=== PATIENT | female | born 1975 | race African-American/Black ===

== ENCOUNTER 2017-08-27 17:15 | Emergency (ER) | payer OTHER ==
[2017-08-27 19:15] LABS: Absolute Monocytes 0.8 K/uL (0.1-1.3); MCH 23.6 pg (27.0-35.0); Monocytes % 9.5 % (3.3-12.3)
[2017-08-27 19:18] LABS: Potassium 3.4 mEq/L (3.6-5.0)
--- NOTE | 2017-08-27 19:21 | RAD REPORT ---
EXAM DESCRIPTION: RAD - Chest Pa And Lat (2 Views) - 08/27/2017 6:59 pm CLINICAL HISTORY: Persistent cough and congestion, chest pain COMPARISON: October 2016 TECHNIQUE: PA and lateral views of the chest were obtained. FINDINGS: The lungs are clear. Heart size is normal and central vasculature is within normal limit s. No pleural effusion or pneumothorax seen. No acute bony finding noted. No aortic abnormality. IMPRESSION: No acute cardiopulmonary process. No significant interval change.
[2017-08-27 19:23] LABS: Absolute Lymphocytes (CBC) 2.7 K/uL (0.7-4.9); Absolute Neutrophil 4.4 K/uL (1.8-8.0); Basophils % 0.7 % (0-1.3); Eosinophils % 1.5 % (0-4.4); Hematocrit 37.3 % (36.0-45.0); Lymphocytes % 33.3 % (15.3-44.8); MCV 76.5 fL (80-100); MPV 9.7 fL (7.6-11.3); RBC Red Blood Cell Count 4.87 M/uL (3.86-4.86)
--- NOTE | 2017-08-27 19:48 | ER ---
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 Transition of care: patient was not received from another setting of care. Onset of symptoms was August 27, 2017. Care prior to arrival: None. 17:54 Method Of Arrival: Ambulatory hb 17:54 Acuity: FERMIN 3 hb 20:00 Initial Sepsis Screen: Does the patient meet any 2 criteria? No. Patient's initial mg2 sepsis screen is negative. 20:35 Initial Sepsis Screen: Does the patient have a suspected source of infection? No. mg2 Patient's initial sepsis screen is negative. Triage Assessment: 20:00 Respiratory: Reports cough that is non-productive, dry, the patient has moderate mg2 shortness of breath. 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 - Social history:: Smoking status: Patient/guardian denies using tobacco. - Family history:: not pertinent. - Hospitalizations: : No recent hospitalization is reported. Screenin:34 Abuse screen: Denies threats or abuse. Denies injuries from another. Nutritional mg2 screening: No deficits noted. Tuberculosis screening: No symptoms or risk factors identified. Fall Risk IV access (20 points). Assessment: 19:32 General: Appears in no apparent distress. comfortable, Behavior is calm, cooperative. mg2 Pain: Complains of pain in chest Pain does not radiate. Pain currently is 5 out of 10 on a pain scale. Quality of pain is described as aching, Pain began 2-3 days ago. Is intermittent, Aggravated by cough. Neuro: Level of Consciousness is awake, alert, Oriented to person, place, time. Cardiovascular: Capillary refill < 3 seconds Patient's skin is warm and dry. Rhythm is regular. Respiratory: Reports cough that is non-productive, Airway is patent Respiratory effort is even, unlabored. GI: No signs and/or symptoms were reported involving the gastrointestinal system. : No signs and/or symptoms were reported regarding the genitourinary system. EENT: No signs and/or symptoms were reported regarding the EENT system. Derm: Skin is intact, Skin is pink, warm \\T\\ dry. normal. Musculoskeletal: No signs and/or symptoms reported regarding the musculoskeletal system. 20:27 Respiratory: with chest congestion . nd been coughing for 2 days. mg2 Vital Signs: 17:56 BP 158 / 95; Pulse 108; Resp 20; Temp 98.9; Pulse Ox 100% on R/A; Weight 81.65 kg; hb Height 5 ft. 4 in. (162.56 cm); Pain 7/10; 19:35 BP 138 / 89; Pulse 89; Resp 18; Pulse Ox 97% on R/A; Pain 5/10; mg2 17:56 Body Mass Index 30.90 (81.65 kg, 162.56 cm) hb ED Course: 17:17 Patient arrived in ED. al2 17:56 Triage completed. hb 17:58 Arm band placed on right wrist. hb 17:58 Patient EKG paged to triage. hb 18:32 Timmy Us MD is Attending Physician. rn 18:56 Initial lab(s) drawn, by nc, sent to lab. EKG done, by ED staff, reviewed by Timmy Us MD. Inserted saline lock: 22 gauge in right hand, using aseptic technique. Blood collected. 18:57 XRAY Chest Pa And Lat (2 Views) In Process Unspecified. EDMS 19:17 Scotty Hollis, RN is Primary Nurse. mg2 20:00 Patient has correct armband on for positive identification. Call light in reach. Side mg2 rails up X2. 20:32 No provider procedures requiring assistance completed. IV discontinued, intact, mg2 bleeding controlled, No redness/swelling at site. Pressure dressing applied. Administered Medications: 20:00 Drug: TORadol 30 mg Route: IVP; Site: right hand; mg2 20:30 Follow up: Response: No adverse reaction; Pain is decreased mg2 20:00 Drug: Zithromax 500 mg Route: PO; mg2 20:30 Follow up: Response: No adverse reaction mg2 20:00 Drug: Tussionex Pennkinetic ER 5 ml Route: PO; mg2 20:30 Follow up: Response: No adverse reaction; Pain is decreased mg2 Outcome: 19:47 Discharge ordered by . rn 20:33 Discharged to home ambulatory, with family. mg2 20:33 Condition: stable 20:33 Discharge instructions given to patient, family, Instructed on discharge instructions, follow up and referral plans. Demonstrated understanding of instructions, follow-up care, medications, Prescriptions given X 2. 20:35 Patient left the ED. 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
--- NOTE | 2017-08-27 19:48 | EDPHYS ---
Physician Documentation [facility] Name: Jesus Machado Age: 42 yrs Sex: Female : 1975 Arrival Date: 08/27/2017 Time: 17:17 Bed 8 Private MD: ED Physician Timmy Us HPI: 08/27 19:42 This 42 yrs old Black Female presents to ER via Ambulatory with complaints of rn Productive Cough, Chest Pain. 19:42 The patient or guardian reports cough. rn 19:45 Onset: The symptoms/episode began/occurred 3 day(s) ago. Severity of symptoms: At their rn worst the symptoms were mild, in the emergency department the symptoms are unchanged. Modifying factors: The symptoms are alleviated by nothing, the symptoms are aggravated by nothing. The patient has not experienced similar symptoms in the past. Reports cough and runny nose for 3 days, now having left sided chest pain with breathing and movement, no fever, no hemoptysis, no hx or risk factors for DVT/PE.. 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 - Social history:: Smoking status: Patient/guardian denies using tobacco. - Family history:: not pertinent. - Hospitalizations: : No recent hospitalization is reported. ROS: 19:45 Constitutional: Negative for fever, chills, and weight loss, Eyes: Negative for injury, rn pain, redness, and discharge, Neck: Negative for injury, pain, and swelling, Cardiovascular: Negative for palpitations, and edema, Respiratory: Negative for wheezing Abdomen/GI: Negative for abdominal pain, nausea, vomiting, diarrhea, and constipation, MS/Extremity: Negative for injury and deformity, Skin: Negative for injury, rash, and discoloration, Neuro: Negative for headache, weakness, numbness, tingling, and seizure. Exam: 19:45 Constitutional: This is a well developed, well nourished patient who is awake, alert, rn and in no acute distress. Head/Face: Normocephalic, atraumatic. Eyes: Pupils equal round and reactive to light, extra-ocular motions intact. Lids and lashes normal. Conjunctiva and sclera are non-icteric and not injected. Cornea within normal limits. Periorbital areas with no swelling, redness, or edema. Neck: Trachea midline, no thyromegaly or masses palpated, and no cervical lymphadenopathy. Supple, full range of motion without nuchal rigidity, or vertebral point tenderness. No Meningismus. Cardiovascular: Regular rate and rhythm with a normal S1 and S2. No gallops, murmurs, or rubs. Normal PMI, no JVD. No pulse deficits. Respiratory: Lungs have equal breath sounds bilaterally, clear to auscultation and percussion. No rales, rhonchi or wheezes noted. No increased work of breathing, no retractions or nasal flaring. Abdomen/GI: Soft, non-tender, with normal bowel sounds. No distension or tympany. No guarding or rebound. No evidence of tenderness throughout. Skin: Warm, dry with normal turgor. Normal color with no rashes, no lesions, and no evidence of cellulitis. MS/ Extremity: Pulses equal, no cyanosis. Neurovascular intact. Full, normal range of motion. Equal circumference. Neuro: Awake and alert, GCS 15, oriented to person, place, time, and situation. Cranial nerves II-XII grossly intact. Motor strength 5/5 in all extremities. Sensory grossly intact. Cerebellar exam normal. Normal gait. Vital Signs: 17:56 BP 158 / 95; Pulse 108; Resp 20; Temp 98.9; Pulse Ox 100% on R/A; Weight 81.65 kg; hb Height 5 ft. 4 in. (162.56 cm); Pain 7/10; 19:35 BP 138 / 89; Pulse 89; Resp 18; Pulse Ox 97% on R/A; Pain 5/10; mg2 17:56 Body Mass Index 30.90 (81.65 kg, 162.56 cm) hb MDM: 18:32 Patient medically screened. rn 19:45 Differential Diagnosis: Bronchitis Upper Respiratory Infection Viral Syndrome Pneumonia rn Other AMI, pleurisy. Data reviewed: vital signs, nurses notes, lab test result(s), EKG, radiologic studies, plain films, and as a result, I will discharge patient. Counseling: I had a detailed discussion with the patient and/or guardian regarding: the historical points, exam findings, and any diagnostic results supporting the discharge/admit diagnosis, lab results, radiology results, the need for outpatient follow up, to return to the emergency department if symptoms worsen or persist or if there are any questions or concerns that arise at home. 19:47 Response to treatment: the patient's symptoms have mildly improved after treatment. rn 08/27 18:37 Order name: CBC with Diff; Complete Time: 19:25 rn 08/27 18:37 Order name: Basic Metabolic Panel; Complete Time: 19:25 rn 08/27 18:37 Order name: Troponin (emerg Dept Use Only); Complete Time: 19:38 rn 08/27 18:37 Order name: XRAY Chest Pa And Lat (2 Views); Complete Time: 19:25 rn 08/27 18:37 Order name: D-Dimer; Complete Time: 19:25 rn 08/27 18:37 Order name: IV Start; Complete Time: 18:56 rn 08/27 18:37 Order name: EKG; Complete Time: 18:37 rn 08/27 18:37 Order name: EKG - Nurse/Tech; Complete Time: 18:56 rn Administered Medications: 20:00 Drug: TORadol 30 mg Route: IVP; Site: right hand; mg2 20:30 Follow up: Response: No adverse reaction; Pain is decreased mg2 20:00 Drug: Zithromax 500 mg Route: PO; mg2 20:30 Follow up: Response: No adverse reaction mg2 20:00 Drug: Tussionex Pennkinetic ER 5 ml Route: PO; mg2 20:30 Follow up: Response: No adverse reaction; Pain is decreased mg2 Disposition: 08/27/17 19:47 Discharged to Home. Impression: Cough, Pleurisy. - Condition is Stable. - Discharge Instructions: Pleurisy, Cough, Adult. - Prescriptions for Zithromax Z- Taras 250 mg Oral Tablet - take 1 tablet by ORAL route as directed for 5 days Day 1 - take two (2) tablets one time. Day 2, 3, 4 , 5 take one (1) tablet once daily.; 6 tablet. Guaifenesin AC 10- 100 mg/5 mL Oral Liquid - take 10 milliliter by ORAL route every 4 hours As needed; 240 milliliter. - Medication Reconciliation Form, Thank You Letter, Antibiotic Education, Prescription Opioid Use form. - Follow up: Private Physician; When: As needed; Reason: Recheck today's complaints, Re-evaluation by your physician. - Problem is new. - Symptoms have improved. Signatures: Dispatcher [employer] EDTimmy Alvarado MD MD rn Baxter, Heather, RN RN hb Gardose, Michele, RN RN mg2 Corrections: (The following items were deleted from the chart) 20:35 19:47 08/27/2017 19:47 Discharged to Home. Impression: Cough; Pleurisy. Condition is mg2 Stable. Forms are Medication Reconciliation Form, Thank You Letter, Antibiotic Education, Prescription Opioid Use. Follow up: Private Physician; When: As needed; Reason: Recheck today's complaints, Re-evaluation by your physician. Problem is new. Symptoms have improved. rn
[2017-08-27] MEDS ORDERED: AZITHROMYCIN 250 MG TAB ONE (19:55)
[2017-08-27] MEDS ORDERED: KETOROLAC 30 MG/ML INJ ONE (19:56)
[2017-08-27] MEDS ORDERED: HYDROCODONE/CHLORPHEN 5 ML/OSYR ONE (19:56)
[2017-08-27 20:45] VITALS: TEMP 98.9
[2017-08-27 20:47] VITALS: BP 138/89; O2SAT 97
--- NOTE | 2017-08-28 06:37 | EKG ---
Test Date: 2017-08-27 Test Time: 18:36:15 Basket Patcher: JAMES MEASUREMENT RESULTS: Intervals: Rate: 97 MT: 122 QRSD: 80 QT: 334 QTc: 424 Sibley: P: 65 MT: 122 QRS: 59 T: 40 INTERPRETIVE STATEMENTS: Normal sinus rhythm Normal ECG Compared to ECG 10/26/2016 23:45:23 Accelerated junctional rhythm no longer present Electronically Signed On 08-28-17 06:36:13 CDT by Renato Gabriel
== END 2017-08-27 20:35 | disposition home or self-care (01) ==
LOC: ER 17:15
DX: R09.1 Pleurisy (principal)
CPT/HCPCS: 36415; 71046; 80048; 84484; 85025; 85379; 93005; 96374; 99284

== ENCOUNTER 2017-10-16 23:12 | Emergency (ER) | payer OTHER ==
[2017-10-16] MEDS ORDERED: CYCLOBENZAPRINE 10 MG TAB ONE (23:54)
[2017-10-16] MEDS ORDERED: KETOROLAC 30 MG/ML INJ ONE (23:55)
[2017-10-17 00:15] LABS: Urine Blood NEGATIVE (NEG); Urine Glucose NEGATIVE (NEG); Urine Protein NEGATIVE (NEG); Urine Specific Gravity 1.015 (1.005-1.030); Urine pH 6.5 (5.0-7.0)
[2017-10-17] MEDS ORDERED: MORPHINE 4 MG/ML SYR ONE (00:54)
--- NOTE | 2017-10-17 01:07 | ER ---
Nurse's Notes [facility] Name: Jesus Machado Age: 42 yrs Sex: Female : 1975 Arrival Date: 10/16/2017 Time: 23:12 Bed 18 Private MD: Renu Bhatti C Diagnosis: Low back pain Presentation: 10/16 23:23 Presenting complaint: Patient states: that she woke up yesterday with severe lower left fc sided back pain that radiates down left leg. Denies any injury. Transition of care: patient was not received from another setting of care. Onset of symptoms was October 15, 2017. Risk Assessment: Do you want to hurt yourself or someone else? Patient reports no desire to harm self or others. Initial Sepsis Screen: Does the patient meet any 2 criteria? No. Patient's initial sepsis screen is negative. Does the patient have a suspected source of infection? No. Patient's initial sepsis screen is negative. Care prior to arrival: Medication(s) given: Tramadol last night. 23:23 Method Of Arrival: Ambulatory 23:23 Acuity: FERMIN 4 Triage Assessment: 23:29 General: Appears uncomfortable, Behavior is calm, cooperative, appropriate for age. fc Pain: Complains of pain in left low back Pain radiates to left leg Pain currently is 9 out of 10 on a pain scale. Quality of pain is described as aching, radiating, Pain began 1 day ago. Is continuous, Aggravated by increased activity, repositioning, weight bearing. EENT: No deficits noted. Neuro: Level of Consciousness is awake, alert, obeys commands, Oriented to person, place, time, situation. Cardiovascular: No deficits noted. Respiratory: No deficits noted. GI: No deficits noted. : No deficits noted. Derm: Skin is pink, warm \T\ dry. Musculoskeletal: Circulation, motion, and sensation intact. Capillary refill < 3 seconds, Range of motion: intact in all extremities, Reports pain in left low back. 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 - Social history:: Smoking status: Patient/guardian denies using tobacco. - Ebola Screening: : Patient negative for fever greater than or equal to 101.5 degrees Fahrenheit, and additional compatible Ebola Virus Disease symptoms Patient denies exposure to infectious person Patient denies travel to an Ebola-affected area in the 21 days before illness onset. Screenin:38 Abuse screen: Denies threats or abuse. Denies injuries from another. Nutritional lp1 screening: No deficits noted. Tuberculosis screening: No symptoms or risk factors identified. Fall Risk None identified. Assessment: 23:47 General: Appears uncomfortable, Behavior is appropriate for age. Pain: Complains of lp1 pain in lumbar area and left low back Pain radiates to left leg Pain currently is 8 out of 10 on a pain scale. Quality of pain is described as radiating, sharp. Neuro: Level of Consciousness is awake, alert, obeys commands, Oriented to person, place, time, situation, Gait is steady. Cardiovascular: Patient's skin is warm and dry. Respiratory: Respiratory effort is even, unlabored. GI: No signs and/or symptoms were reported involving the gastrointestinal system. : No signs and/or symptoms were reported regarding the genitourinary system. EENT: No signs and/or symptoms were reported regarding the EENT system. Derm: Skin is intact, Skin is dry, Skin is normal. Musculoskeletal: Circulation, motion, and sensation intact. 10/17 00:59 Reassessment: Patient and/or family updated on plan of care and expected duration. Pain lp1 level reassessed. Pain unchanged, Provider notified. 01:32 Reassessment: Patient complaint of nausea, Provider notified; Verbal order to lp1 administer Zofran 4mg PO. Vital Signs: 10/16 23:26 BP 145 / 102; Pulse 73; Resp 18; Temp 98.7(O); Pulse Ox 100% on R/A; Weight 77.11 kg fc (R); Height 5 ft. 3 in. (160.02 cm) (R); Pain 9/10; 10/17 00:59 BP 131 / 88; Pulse 82; Resp 16; Pulse Ox 100% on R/A; lp1 10/16 23:26 Body Mass Index 30.11 (77.11 kg, 160.02 cm) ED Course: 10/16 23:12 Patient arrived in ED. am2 23:13 Renu Bhatti FNP is Private Physician. am2 23:16 [facility] cp 23:16 Mo Abarca MD is Attending Physician. cp 23:24 Triage completed. 23:26 Arm band placed on Patient placed in an exam room, on a stretcher. 23:38 Mila Smith, RN is Primary Nurse. lp1 23:38 Patient has correct armband on for positive identification. lp1 10/17 01:00 No provider procedures requiring assistance completed. Patient did not have IV access lp1 during this emergency room visit. Administered Medications: 10/16 23:58 Drug: TORadol 60 mg Route: IM; Site: left gluteus; lp1 10/17 00:58 Follow up: Response: Pain is unchanged, physician notified lp1 10/16 23:58 Drug: Flexeril 10 mg Route: PO; lp1 10/17 00:59 Follow up: Response: Pain is unchanged, physician notified lp1 00:58 Drug: morphine 4 mg Route: IM; Site: left gluteus; lp1 01:33 Follow up: Response: Pain is unchanged, physician notified lp1 01:33 Drug: Zofran 4 mg Route: PO; lp1 01:33 Follow up: Response: Medication administered at discharge. lp1 Outcome: 01:06 Discharge ordered by MD. cp 01:34 Discharged to home ambulatory, with friend. lp1 01:34 Condition: good 01:34 Discharge instructions given to patient, Instructed on discharge instructions, follow up and referral plans. medication usage, Demonstrated understanding of instructions, follow-up care, medications, Prescriptions given X 3. 01:34 Patient left the ED. lp1 Signatures: Aleah Nunn RN RN Mila Smith, RN RN lp1 Morteza Martínez PA PA cp Jumana Salgado amKristy
--- NOTE | 2017-10-17 01:07 | EDPHYS ---
Physician Documentation [facility] Name: Jesus Machado Age: 42 yrs Sex: Female : 1975 Arrival Date: 10/16/2017 Time: 23:12 Bed 18 Private MD: Renu Bhatti C ED Physician Mo Abarca HPI: 10/16 23:48 This 42 yrs old Black Female presents to ER via Ambulatory with complaints of Low Back cp Pain. 23:48 The patient presents with pain that is acute, with no known mechanism of injury. The cp symptoms are located in the low back, worse on left. The pain does not radiate. The problem was sustained from unknown cause, started after she awoke. Onset: The symptoms/episode began/occurred yesterday. Modifying factors: the patient symptoms are aggravated by any movement, walking. Associated signs and symptoms: Pertinent negatives: abdominal pain, constipation, dysuria, fever, hematuria, incontinence, numbness, urinary retention, weakness. Severity of symptoms: in the emergency department the symptoms are unchanged, despite home interventions. 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 - Social history:: Smoking status: Patient/guardian denies using tobacco. - Ebola Screening: : Patient negative for fever greater than or equal to 101.5 degrees Fahrenheit, and additional compatible Ebola Virus Disease symptoms Patient denies exposure to infectious person Patient denies travel to an Ebola-affected area in the 21 days before illness onset. ROS: 23:51 Eyes: Negative for injury, pain, redness, and discharge. cp 23:51 Constitutional: Negative for body aches, chills, fever, poor PO intake. 23:51 ENT: Negative for drainage from ear(s), ear pain, sore throat, difficulty swallowing, difficulty handling secretions. 23:51 Cardiovascular: Negative for chest pain, edema, palpitations. 23:51 Respiratory: Negative for cough, shortness of breath, wheezing. 23:51 Abdomen/GI: Negative for abdominal pain, nausea, vomiting, and diarrhea, constipation, black/tarry stool, rectal bleeding, bowel incontinence. 23:51 Back: Positive for pain at rest, pain with movement, of the lumbar area and left low back, Negative for injury or acute deformity. 23:51 : Negative for urinary symptoms, flank pain, bladder incontinence. 23:51 MS/extremity: Negative for injury or acute deformity, decreased range of motion, paresthesias. 23:51 Skin: Negative for cellulitis, rash. 23:51 Neuro: Negative for altered mental status, headache, numbness, tingling, weakness. 23:51 All other systems are negative. Exam: 23:57 Constitutional: The patient appears in no acute distress, alert, awake, non-toxic, well cp developed, well nourished, uncomfortable. 23:57 Head/Face: Normocephalic, atraumatic. cp 23:57 Eyes: Periorbital structures: appear normal, Conjunctiva: normal, no exudate, no cp injection, Lids and lashes: appear normal, bilaterally. 23:57 ENT: External ear(s): are unremarkable, Nose: is normal, Mouth: Lips: moist, Oral cp mucosa: moist, Posterior pharynx: is normal, airway is patent, no erythema, no exudate. 23:57 Neck: ROM/movement: is normal, is supple, without pain, no range of motions limitations, no nuchal rigidity. 23:57 Chest/axilla: Inspection: normal, Palpation: is normal, no crepitus, no tenderness. 23:57 Cardiovascular: Rate: normal, Rhythm: regular. 23:57 Respiratory: the patient does not display signs of respiratory distress, Respirations: normal, no use of accessory muscles, no retractions, no splinting, no tachypnea, labored breathing, is not present, Breath sounds: are clear throughout, no decreased breath sounds, no stridor, no wheezing. 23:57 Abdomen/GI: Inspection: abdomen appears normal, Palpation: abdomen is soft and non-tender, in all quadrants, voluntary guarding, is not appreciated, involuntary guarding, is not appreciated. 23:57 Back: pain, that is moderate, of the lumbar area and left low back, ROM is painful, with all movement, muscle spasm, is not present, Straight leg raises: of both lower extremities does not illicit pain. 23:57 Skin: cellulitis, is not appreciated, no rash present. 23:57 Neuro: Orientation: to person, place \T\ time. Mentation: is normal, Motor: moves all fours, strength is normal, Sensation: no obvious gross deficits, Gait: is steady, Deep tendon reflexes are 2+ (normal) in the right patellar, right Achilles, left patellar and left Achilles. Vital Signs: 23:26 BP 145 / 102; Pulse 73; Resp 18; Temp 98.7(O); Pulse Ox 100% on R/A; Weight 77.11 kg fc (R); Height 5 ft. 3 in. (160.02 cm) (R); Pain 9/10; 10/17 00:59 BP 131 / 88; Pulse 82; Resp 16; Pulse Ox 100% on R/A; lp1 10/16 23:26 Body Mass Index 30.11 (77.11 kg, 160.02 cm) fc MDM: 10/16 23:16 Patient medically screened. 23:45 Differential diagnosis: strain, sciatica, Herniated disc UTI. 10/17 01:05 Data reviewed: vital signs, nurses notes, lab test result(s), and as a result, I will cp discharge patient. 01:05 Counseling: I had a detailed discussion with the patient and/or guardian regarding: the cp historical points, exam findings, and any diagnostic results supporting the discharge/admit diagnosis, lab results, the need for outpatient follow up, a family practitioner, to return to the emergency department if symptoms worsen or persist or if there are any questions or concerns that arise at home. Response to treatment: the patient's symptoms have mildly improved after treatment. 10/16 23:49 Order name: Urine Dipstick--Ancillary (enter results); Complete Time: 00:31 [facility] 10/16 23:49 Order name: Urine --Ancillary (enter results); Complete Time: 00:31 [facility] 10/17 00:31 Interpretation: Reviewed. 10/16 23:43 Order name: Urine Dipstick-Ancillary (obtain specimen); Complete Time: 23:46 10/16 23:43 Order name: Urine Test (obtain specimen); Complete Time: 23:46 cp Administered Medications: 10/16 23:58 Drug: TORadol 60 mg Route: IM; Site: left gluteus; lp1 10/17 00:58 Follow up: Response: Pain is unchanged, physician notified lp1 10/16 23:58 Drug: Flexeril 10 mg Route: PO; lp1 10/17 00:59 Follow up: Response: Pain is unchanged, physician notified lp1 00:58 Drug: morphine 4 mg Route: IM; Site: left gluteus; lp1 01:33 Follow up: Response: Pain is unchanged, physician notified lp1 01:33 Drug: Zofran 4 mg Route: PO; lp1 01:33 Follow up: Response: Medication administered at discharge. lp1 Disposition: 01:35 Co-signature as Attending Physician, Mo Abarca MD I agree with the assessment and tw4 plan of care. Disposition: 10/17/17 01:06 Discharged to Home. Impression: Low back pain. - Condition is Stable. - Discharge Instructions: Back Pain, Adult, Back Exercises, Dthe-[id number]. - Prescriptions for Tramadol 50 mg Oral Tablet - take 1 tablet by ORAL route every 8 hours as needed. no driving while taking medication; 15 tablet. Medrol (Taras) 4 mg Oral Tablets, Dose Pack - take 1 tablet by ORAL route as directed - follow package instructions; 1 packet. orphenadrine citrate 100 mg Oral Tablet Sustained Release - take 1 tablet by ORAL route 2 times per day As needed no driving while taking medication; 20 tablet. - Medication Reconciliation Form, Thank You Letter, Antibiotic Education, Prescription Opioid Use form. - Follow up: Private Physician; When: 1 - 2 days; Reason: Recheck today's complaints. - Problem is new. - Symptoms have improved. Signatures: Dispatcher [employer] Aleah Fragoso RN RN Mila Méndez RN RN lp1 Morteza Martínez PA PA cp Wadley, Terrence, MD MD tw4 Corrections: (The following items were deleted from the chart) 01:34 01:06 10/17/2017 01:06 Discharged to Home. Impression: Low back pain. Condition is lp1 Stable. Forms are Medication Reconciliation Form, Thank You Letter, Antibiotic Education, Prescription Opioid Use. Follow up: Private Physician; When: 1 - 2 days; Reason: Recheck today's complaints. Problem is new. Symptoms have improved. cp
[2017-10-17] MEDS ORDERED: ONDANSETRON 4 MG (ODT) TAB ONE (01:30)
[2017-10-17 01:38] VITALS: TEMP 98.7; O2SAT 100
[2017-10-17 01:39] VITALS: BP 131/88
== END 2017-10-17 01:34 | disposition home or self-care (01) ==
LOC: ER 23:12
DX: M54.5 Low back pain (principal); I10 Essential (primary) hypertension
CPT/HCPCS: 81003; 81025; 96372; 99283

== ENCOUNTER 2019-05-27 19:51 | Emergency (ER) | payer OTHER, SELFPAY ==
--- NOTE | 2019-05-27 20:33 | ER ---
Nurse's Notes [facility] Name: Jesus Machado Age: 44 yrs Sex: Female : 1975 Arrival Date: 05/27/2019 Time: 19:54 Bed 6 Private MD: Diagnosis: Stomatitis and related lesions Presentation: 05/27 19:56 Presenting complaint: Patient states: About an hour ago, I noticed pain at the roof of ca1 my mouth. But I have been having a sore throat all week. Denies fever. Transition of care: patient was not received from another setting of care. Onset of symptoms was May 27, 2019. Risk Assessment: Do you want to hurt yourself or someone else? Patient reports no desire to harm self or others. Initial Sepsis Screen: Does the patient meet any 2 criteria? No. Patient's initial sepsis screen is negative. Does the patient have a suspected source of infection? No. Patient's initial sepsis screen is negative. Care prior to arrival: None. 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 - Coronavirus screen:: The patient has NOT traveled to [place] in the past 14 days. The patient has NOT had contact with known/suspected case of Coronavirus?. - Social history:: Smoking status: Patient denies any tobacco usage or history of. - Ebola Screening: : Patient negative for fever greater than or equal to 101.5 degrees Fahrenheit, and additional compatible Ebola Virus Disease symptoms Patient denies exposure to infectious person Patient denies travel to an Ebola-affected area in the 21 days before illness onset No symptoms or risks identified at this time. Screenin:10 Abuse screen: Denies threats or abuse. Nutritional screening: No deficits noted. jd3 Tuberculosis screening: No symptoms or risk factors identified. Fall Risk Ambulatory Aid- None/Bed Rest/Nurse Assist (0 pts). Gait- Normal/Bed Rest/Wheelchair (0 pts) Mental Status- Oriented to own ability (0 pts). Total Cormier Fall Scale indicates No Risk (0-24 pts). Assessment: 20:08 General: Appears in no apparent distress. uncomfortable, Behavior is calm, cooperative, jd3 appropriate for age. Pain: Complains of pain in right buccal mucosa Quality of pain is described as pressure. Neuro: Level of Consciousness is awake, alert, obeys commands, Oriented to person, place, time, situation. Cardiovascular: Denies chest pain, Capillary refill < 3 seconds Patient's skin is warm and dry. Respiratory: Airway is patent Respiratory effort is even, unlabored, Respiratory pattern is regular, symmetrical, Denies cough, shortness of breath. GI: No signs and/or symptoms were reported involving the gastrointestinal system. : No signs and/or symptoms were reported regarding the genitourinary system. EENT: Oral mucosa is moist. small patch in the top right side of the mouth with small amount of bleeding noted.. Derm: Skin is intact, Skin is dry, Skin is normal, Skin temperature is warm. Musculoskeletal: Circulation, motion, and sensation intact. Range of motion: intact in all extremities. Vital Signs: 19:59 BP 165 / 87; Pulse 81; Resp 16 S; Temp 98.8(O); Pulse Ox 100% on R/A; Weight 77.11 kg ca1 (R); Height 5 ft. 3 in. (160.02 cm) (R); Pain 6/10; 21:25 BP 156 / 78; Pulse 80; Resp 18; Temp 98; Pulse Ox 100% on R/A; mg2 19:59 Body Mass Index 30.11 (77.11 kg, 160.02 cm) ca1 ED Course: 19:54 Patient arrived in ED. jg7 19:58 Triage completed. ca1 19:59 Arm band placed on right wrist. ca1 20:05 Mo Abarca MD is Attending Physician. tw4 20:07 Epi Hunt, ROGELIO is Primary Nurse. jd3 20:10 Patient has correct armband on for positive identification. Bed in low position. Call jd3 light in reach. Side rails up X 1. Adult w/ patient. 21:25 No provider procedures requiring assistance completed. Patient did not have IV access mg2 during this emergency room visit. Administered Medications: No medications were administered Outcome: 20:33 Discharge ordered by . chris 21:25 Discharged to home ambulatory. mg2 21:25 Condition: stable 21:25 Discharge instructions given to patient, Instructed on discharge instructions, follow up and referral plans. medication usage, Demonstrated understanding of instructions, follow-up care, medications, Prescriptions given X 2. 21:26 Patient left the ED. mg2 Signatures: Epi Hunt RN RN jd3 Mo Abarca MD MD tw4 Scotty Hollis RN RN mg2 Maria Teresa Shah RN RN ca1 Jessica Mancillag7
--- NOTE | 2019-05-28 21:27 | EDPHYS ---
Physician Documentation [facility] Name: Jesus Machado Age: 44 yrs Sex: Female : 1975 Arrival Date: 05/27/2019 Time: 19:54 Bed 6 Private MD: ED Physician Mo Abarca HPI: 05/28 05:29 This 44 yrs old Black Female presents to ER via Ambulatory with complaints of ABCESS IN tw4 MOUTH. 05:29 The patient presents with bleeding. The problem is located in the hard palate. Onset: tw4 The symptoms/episode began/occurred today. Duration: The symptoms are continuous, and are unchanged since they started. Modifying factors: The symptoms are alleviated by nothing, the symptoms are aggravated by nothing. Associated signs and symptoms: The patient has no apparent associated signs or symptoms. Severity of symptoms: At their worst the symptoms were mild, in the emergency department the symptoms are unchanged. The patient has not recently seen a physician. 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 - Coronavirus screen:: The patient has NOT traveled to [place] in the past 14 days. The patient has NOT had contact with known/suspected case of Coronavirus?. - Social history:: Smoking status: Patient denies any tobacco usage or history of. - Ebola Screening: : Patient negative for fever greater than or equal to 101.5 degrees Fahrenheit, and additional compatible Ebola Virus Disease symptoms Patient denies exposure to infectious person Patient denies travel to an Ebola-affected area in the 21 days before illness onset No symptoms or risks identified at this time. ROS: 05/28 05:29 Constitutional: Negative for fever, chills, and weight loss, Cardiovascular: Negative tw4 for chest pain, palpitations, and edema, Respiratory: Negative for shortness of breath, cough, wheezing, and pleuritic chest pain, Abdomen/GI: Negative for abdominal pain, nausea, vomiting, diarrhea, and constipation, Back: Negative for injury and pain, MS/Extremity: Negative for injury and deformity, Skin: Negative for injury, rash, and discoloration. ENT: Positive for Gum pain mouth pain, Negative for injury or acute deformity, ear pain, foreign body sensation, hearing loss, pulling at ears, Teeth pain tinnitus, nasal discharge, rhinorrhea, sinus congestion. Exam: 05:29 Constitutional: This is a well developed, well nourished patient who is awake, alert, tw4 and in no acute distress. Head/Face: Normocephalic, atraumatic. 05:29 Neck: Trachea midline, no thyromegaly or masses palpated, and no cervical lymphadenopathy. Supple, full range of motion without nuchal rigidity, or vertebral point tenderness. No Meningismus. Chest/axilla: Normal chest wall appearance and motion. Nontender with no deformity. No lesions are appreciated. 05:29 ENT: Mouth: Oral mucosa: noted to have obvious stomatitis, abscess, is not appreciated. Vital Signs: 05/27 19:59 BP 165 / 87; Pulse 81; Resp 16 S; Temp 98.8(O); Pulse Ox 100% on R/A; Weight 77.11 kg ca1 (R); Height 5 ft. 3 in. (160.02 cm) (R); Pain 6/10; 21:25 BP 156 / 78; Pulse 80; Resp 18; Temp 98; Pulse Ox 100% on R/A; mg2 19:59 Body Mass Index 30.11 (77.11 kg, 160.02 cm) ca1 MDM: 20:05 Patient medically screened. tw4 05/28 05:29 Differential diagnosis: dental caries, gingivitis. Data reviewed: vital signs, nurses tw4 notes. Data interpreted: Pulse oximetry: Interpretation: normal. Counseling: I had a detailed discussion with the patient and/or guardian regarding: the historical points, exam findings, and any diagnostic results supporting the discharge/admit diagnosis. Special discussion: I discussed with the patient/guardian in detail that at this point there is no indication for admission to the hospital. It is understood, however, that if the symptoms persist or worsen the patient needs to return immediately for re-evaluation. Administered Medications: No medications were administered Disposition: 05/27/19 20:33 Discharged to Home. Impression: Stomatitis and related lesions. - Condition is Stable. - Discharge Instructions: Stomatitis. - Prescriptions for Peridex 0.12 % Mucous Membrane mouthwash - place 15 milliliter by MUCOUS MEMBRANE route 2 times per day after brushing teeth, swish in mouth for 30 seconds then spit out; 1 bottle. Cleocin 150 mg Oral Capsule - take 1 capsule by ORAL route every 6 hours for 10 days; 40 capsule. - Medication Reconciliation Form, Thank You Letter, Antibiotic Education, Prescription Opioid Use form. - Follow up: Private Physician; When: Upon discharge from the Emergency Department; Reason: Recheck today's complaints, Continuance of care, Re-evaluation by your physician. - Problem is new. - Symptoms have improved. Signatures: Mo Abarca MD MD tw4 Scotty Hollis, ROGELIO RN mg2 Maria Teresa Sahh RN RN ca1 Corrections: (The following items were deleted from the chart) 05/27 21:26 20:33 05/27/2019 20:33 Discharged to Home. Impression: Stomatitis and related lesions. mg2 Condition is Stable. Forms are Medication Reconciliation Form, Thank You Letter, Antibiotic Education, Prescription Opioid Use. Follow up: Private Physician; When: Upon discharge from the Emergency Department; Reason: Recheck today's complaints, Continuance of care, Re-evaluation by your physician. Problem is new. Symptoms have improved. tw4
[2019-05-29 11:38] VITALS: BP 156/78; TEMP 98; O2SAT 100
== END 2019-05-27 21:26 | disposition home or self-care (01) ==
LOC: ER 19:51
DX: K12.1 Other forms of stomatitis (principal)
CPT/HCPCS: 99282

== ENCOUNTER 2019-06-16 10:28 | Emergency (ER) | payer SELFPAY ==
--- NOTE | 2019-06-16 13:09 | ER ---
Nurse's Notes [facility] Name: Jesus Machado Age: 44 yrs Sex: Female : 1975 Arrival Date: 06/16/2019 Time: 10:31 Bed 19 Private MD: Diagnosis: Intermittent ulcerations of posterior palate Presentation: 06/15 10:40 Chief complaint: Patient states: "It started a couple weeks ago. I got a blood blister ss in the back of my throat, but now the pain is worse. I saw my doctor after the ER and they said that it was swollen so they wanted to check my thyroid.". Coronavirus screen: The patient has NOT traveled to [place] in the past 14 days. Proceed with normal triage procedures. Ebola Screen: Patient denies exposure to infectious person. Patient denies travel to an Ebola-affected area in the 21 days before illness onset. Ebola Screen: Patient denies exposure to infectious person. Patient denies travel to an Ebola-affected area in the 21 days before illness onset. Initial Sepsis Screen: Does the patient meet any 2 criteria? No. Patient's initial sepsis screen is negative. Does the patient have a suspected source of infection? No. Patient's initial sepsis screen is negative. Risk Assessment: Do you want to hurt yourself or someone else? Patient reports no desire to harm self or others. 10:40 Method Of Arrival: Ambulatory ss 10:40 Acuity: FERMIN 3 ss 11:44 Onset of symptoms was June 16, 2019. 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 - Social history:: Smoking status: Patient denies any tobacco usage or history of. Screenin:41 Abuse screen: Denies threats or abuse. Denies injuries from another. Nutritional ca1 screening: No deficits noted. Tuberculosis screening: No symptoms or risk factors identified. Fall Risk None identified. Assessment: 11:41 General: Appears in no apparent distress. comfortable, Behavior is calm, cooperative, ca1 appropriate for age. Pain: Complains of pain in throat Pain currently is 6 out of 10 on a pain scale. Neuro: Level of Consciousness is awake, alert, obeys commands, Oriented to person, place, time, situation, Appropriate for age. Cardiovascular: Heart tones S1 S2 present Capillary refill < 3 seconds Patient's skin is warm and dry. Respiratory: Airway is patent Respiratory effort is even, unlabored, Respiratory pattern is regular, symmetrical, Breath sounds are clear bilaterally. GI: Abdomen is round non-distended, Bowel sounds present X 4 quads. Abd is soft and non tender X 4 quads. : No signs and/or symptoms were reported regarding the genitourinary system. EENT: Throat is reddened Reports difficulty swallowing and spitting up blood. Derm: Skin is intact, is healthy with good turgor, Skin is pink, warm \\T\\ dry. Musculoskeletal: Circulation, motion, and sensation intact. Capillary refill < 3 seconds. 13:27 Reassessment: No changes from previously documented assessment. mg2 Vital Signs: 10:40 BP 147 / 89; Pulse 95; Resp 18; Temp 98.9(TE); Pulse Ox 100% on R/A; Weight 80.74 kg; ss Height 5 ft. 3 in. (160.02 cm); Pain 6/10; 11:41 BP 170 / 76; Pulse 91; Resp 16 S; Pulse Ox 97% on R/A; ca1 12:51 BP 147 / 80; Pulse 89; Resp 18; Pulse Ox 100% on R/A; mg2 13:27 BP 129 / 78; Pulse 89; Resp 18; Temp 98; Pulse Ox 100% on R/A; mg2 10:40 Body Mass Index 31.53 (80.74 kg, 160.02 cm) ED Course: 10:31 Patient arrived in ED. mr 10:42 Triage completed. ss 10:43 Arm band placed on right wrist. ss 10:48 [facility] Hilton [facility] snw 10:48 Morteza Key MD is Attending Physician. snw 11:40 Maria Teresa Shah, ROGELIO is Primary Nurse. ca1 11:41 Patient has correct armband on for positive identification. Placed in gown. Bed in low ca1 position. Call light in reach. Side rails up X 1. Pulse ox on. NIBP on. Warm blanket given. 11:55 Initial lab(s) drawn, by me, sent to lab. Strep swab sent to lab. Inserted saline lock: ca1 20 gauge antecubital area, using aseptic technique. Blood collected. 12:07 No provider procedures requiring assistance completed. mg2 13:07 Erica Maradiaga MD is Referral Physician. snw 13:27 IV discontinued, intact, bleeding controlled, No redness/swelling at site. Pressure mg2 dressing applied. Administered Medications: No medications were administered Outcome: 13:08 Discharge ordered by . snw 13:27 Discharged to home ambulatory, with family. mg2 13:27 Condition: good 13:27 Discharge instructions given to patient, family, Instructed on discharge instructions, follow up and referral plans. medication usage, Demonstrated understanding of instructions, follow-up care, medications, Prescriptions given X 1. 13:28 Patient left the ED. mg2 Signatures: Alyssa Hilton, SHED BOSS-C SHED BOSS-Csnw GabrielMiryam May Carlisle RN RN ss Scotty Hollis RN RN mg2 Maria Teresa Shah RN RN ca1
--- NOTE | 2019-06-16 13:09 | EDPHYS ---
Physician Documentation [facility] Name: Jesus Machado Age: 44 yrs Sex: Female : 1975 Arrival Date: 06/16/2019 Time: 10:31 Bed 19 Private MD: ED Physician Morteza Key HPI: 06/15 13:05 This 44 yrs old Black Female presents to ER via Ambulatory with complaints of Vomiting, snw Sore Throat. 13:05 The patient presents with bloody ulcerations of posterior palate. The problem is snw located in the left aspect of posterior pharynx. Onset: The symptoms/episode began/occurred 2 week(s) ago, intermittent. Duration: The symptoms are intermittent, with no pattern. Associated signs and symptoms: The patient has no apparent associated signs or symptoms. Severity of symptoms: At their worst the symptoms were moderate, severe. The patient has not experienced similar symptoms in the past. The patient has not recently seen a physician. CALL PERSON: 11:44 LMP 06/15/2019 ca1 Historical: - Allergies: 10:43 No Known Allergies; ss - PMHx: 10:43 Hypertension; insomnia; ss - PSHx: 10:43 Appendectomy; Hernia repair; right shoulder sx; Tubal ligation; spinal injections; ss - Immunization history:: Adult Immunizations unknown. - Social history:: Smoking status: Patient denies any tobacco usage or history of. ROS: 12:59 Constitutional: Negative for fever, chills, and weight loss, Eyes: Negative for injury, snw pain, redness, and discharge, Neck: Negative for injury, pain, mild anterior right thyroid swelling, Cardiovascular: Negative for chest pain, palpitations, and edema, Respiratory: Negative for shortness of breath, cough, wheezing, and pleuritic chest pain, Abdomen/GI: Negative for abdominal pain, nausea, vomiting, diarrhea, and constipation, Back: Negative for injury and pain, : Negative for injury, bleeding, discharge, and swelling, MS/Extremity: Negative for injury and deformity, Skin: Negative for injury, rash, and discoloration, Neuro: Negative for headache, weakness, numbness, tingling, and seizure, Psych: Negative for depression, anxiety, suicide ideation, homicidal ideation, and hallucinations. 12:59 ENT: Positive for bloody appearing ulcerations to posterior palate. Exam: 12:58 Constitutional: This is a well developed, well nourished patient who is awake, alert, snw and in no acute distress. Head/Face: Normocephalic, atraumatic. Eyes: Pupils equal round and reactive to light, extra-ocular motions intact. Lids and lashes normal. Conjunctiva and sclera are non-icteric and not injected. Cornea within normal limits. Periorbital areas with no swelling, redness, or edema. Neck: Trachea midline, no thyromegaly or masses palpated, and no cervical lymphadenopathy. Supple, full range of motion without nuchal rigidity, or vertebral point tenderness. No Meningismus. Chest/axilla: Normal chest wall appearance and motion. Nontender with no deformity. No lesions are appreciated. Cardiovascular: Regular rate and rhythm with a normal S1 and S2. No gallops, murmurs, or rubs. Normal PMI, no JVD. No pulse deficits. Respiratory: Lungs have equal breath sounds bilaterally, clear to auscultation and percussion. No rales, rhonchi or wheezes noted. No increased work of breathing, no retractions or nasal flaring. Abdomen/GI: Soft, non-tender, with normal bowel sounds. No distension or tympany. No guarding or rebound. No evidence of tenderness throughout. Back: No spinal tenderness. No costovertebral tenderness. Full range of motion. Skin: Warm, dry with normal turgor. Normal color with no rashes, no lesions, and no evidence of cellulitis. MS/ Extremity: Pulses equal, no cyanosis. Neurovascular intact. Full, normal range of motion. Neuro: Awake and alert, GCS 15, oriented to person, place, time, and situation. Cranial nerves II-XII grossly intact. Motor strength 5/5 in all extremities. Sensory grossly intact. Cerebellar exam normal. Normal gait. Psych: Awake, alert, with orientation to person, place and time. Behavior, mood, and affect are within normal limits. 12:58 ENT: TM's: are normal, Mouth: is normal, Posterior pharynx: erythema, that is moderate, areas of bloody ulcerations to left palate, Voice: is normal. Vital Signs: 10:40 BP 147 / 89; Pulse 95; Resp 18; Temp 98.9(TE); Pulse Ox 100% on R/A; Weight 80.74 kg; ss Height 5 ft. 3 in. (160.02 cm); Pain 6/10; 11:41 BP 170 / 76; Pulse 91; Resp 16 S; Pulse Ox 97% on R/A; ca1 12:51 BP 147 / 80; Pulse 89; Resp 18; Pulse Ox 100% on R/A; mg2 13:27 BP 129 / 78; Pulse 89; Resp 18; Temp 98; Pulse Ox 100% on R/A; mg2 10:40 Body Mass Index 31.53 (80.74 kg, 160.02 cm) ss MDM: 11:37 Patient medically screened. snw 13:11 Data reviewed: vital signs, nurses notes. Data interpreted: Pulse oximetry: on room air snw is 100 %. Interpretation: normal. Special discussion: I have referred the patient to see his PCP for further evaluation of high blood pressure. Based on the history and exam findings, there is no indication for further emergent testing or inpatient evaluation. I discussed with the patient/guardian the need to see the ENT specialist for further evaluation of the symptoms. I discussed with the patient/guardian the need to see the primary care provider for further evaluation of the symptoms. 06/15 10:49 Order name: Strep; Complete Time: 12:21 snw 06/15 10:49 Order name: [place] Screen Profile; Complete Time: 12:21 snw 06/15 10:49 Order name: TSH; Complete Time: 12:38 snw 06/15 12:25 Order name: Throat Culture EDMS Administered Medications: No medications were administered Disposition: 14:51 Co-signature as Attending Physician, Morteza Key MD I agree with the assessment and vidal plan of care. Disposition: 06/16/19 13:08 Discharged to Home. Impression: Intermittent ulcerations of posterior palate. - Condition is Stable. - Discharge Instructions: Pharyngitis. - Prescriptions for Maalox Maximum Strength - Apply to affected area 2 Teaspoon by ORAL route 3-4 times daily Swish and spit or swallow; 1 bottle. - Medication Reconciliation Form, Thank You Letter, Antibiotic Education, Prescription Opioid Use form. - Follow up: Emergency Department; When: As needed; Reason: Worsening of condition. Follow up: Erica Maradiaga MD; When: 1 - 2 days; Reason: Recheck today's complaints, Continuance of care. Signatures: Dispatcher [employer] Morteza Ovalles MD MD cha Therrien, Shelly, ELECTRONIC SPECIALIST-C ELECTRONIC SPECIALIST-Csnw May Carlisle, ROGELIO RN ss Scotty Hollis, ROGELIO RN mg2 Corrections: (The following items were deleted from the chart) 13:28 13:08 06/16/2019 13:08 Discharged to Home. Impression: Intermittent ulcerations of mg2 posterior palate. Condition is Stable. Forms are Medication Reconciliation Form, Thank You Letter, Antibiotic Education, Prescription Opioid Use. Follow up: Emergency Department; When: As needed; Reason: Worsening of condition. Follow up: Erica Maradiaga; When: 1 - 2 days; Reason: Recheck today's complaints, Continuance of care. snw
== END 2019-06-16 13:28 | disposition home or self-care (01) ==
LOC: ER 10:28
DX: K12.1 Other forms of stomatitis (principal)
CPT/HCPCS: 36415; 84443; 86308; 87070; 87081; 99284

== ENCOUNTER 2019-06-16 20:38 | Emergency (ER) | payer SELFPAY ==
--- OUTSIDE RECORDS SUMMARY | 2019-06-16 20:40 | XMS REPORT ---
:1975 [facility] Address [address] [place] [address] [address] [place] [address] Care Team Providers Name Role Phone Unavailable Unavailable Unavailable Problems This patient has no known problems. Allergies, Adverse Reactions, Alerts This patient has no known allergies or adverse reactions. Medications This patient has no known medications.
--- OUTSIDE RECORDS SUMMARY | 2019-06-16 20:41 | XMS REPORT | Summary of Care ---
:1975 Author Organization [facility] Address [address] [place] [id number] Care Team Providers Name Role Phone Erica Bhatti Primary Care Provider Reason for Referral MRI/CAT Scan (STAT) Status Reason Specialty Diagnoses / Referred By Referred To Procedures Contact Contact New Request Diagnostic Diagnoses Globus sensation Landen Rodriguez, Radiology Procedures CT SOFT TISSUE NECK W CONTRAST DO [address] [place] [address]. [address] [place] [address] Reason for Visit Reason Comments Vomiting Blood Auth/Cert Status Reason Specialty Diagnoses / Referred By Referred To Procedures Contact Contact [facility] [address] [place] [address] [place] [address] Encounter Details Date Type Department Care Team Description 06/16/2019 Emergency [facility] Landen Rodriguez DO Globus sensation (Primary Dx); Department [address] [place] [address]. Thyroid nodule; [address] [place] [address] [address] Hematemesis, presence of nausea not specified [place], [place] [id number] [place] [id number] Allergies No Known Allergiesdocumented as of this encounter (statuses as of 06/16/2019) Medications Medication Sig Dispensed Refills Start Date End Date Status traMADOL 50 mg tablet Take 50 mg by 0 Active mouth 2 (two) times daily. zolpidem 5 mg tablet Take 5 mg by 0 Active mouth at bedtime. sucralfate 1 gram Take 1 tablet by 30 tablet 0 06/16/2019 Active tabletIndications: mouth before Hematemesis, presence meals and at of nausea not bedtime. specified dicyclomine (BENTYL) Take 1 capsule 30 capsule 0 06/16/2019 Active 10 mg by mouth every 8 capsuleIndications: (eight) hours as Hematemesis, presence needed for of nausea not Abdominal pain. specified ondansetron 4 mg Take 1 tablet by 20 tablet 0 06/16/2019 Active disintegrating mouth every 8 tabletIndications: (eight) hours as Hematemesis, presence needed for of nausea not Nausea and specified Vomiting (N/V). omeprazole 20 mg Take 1 capsule 30 capsule 0 06/16/2019 07/16/2019 Active capsuleIndications: by mouth daily Hematemesis, presence for 30 days. of nausea not specified documented as of this encounter (statuses as of 06/16/2019) Active Problems No known active problemsdocumented as of this encounter (statuses as of 2019) Social History Tobacco Use Types Packs/Day Years Used Date Never Smoker Smokeless Tobacco: Never Used Alcohol Use Drinks/Week oz/Week Comments No 0 Standard drinks or equivalent 0.0 Sex Assigned at Date Recorded Not on file Job Start Date Occupation Industry Not on file Not on file Not on file Travel History Travel Start Travel End No recent travel history available. documented as of this encounter Last Filed Vital Signs Vital Sign Reading Time Taken Comments Blood Pressure 154/87 06/16/2019 6:10 PM [employer] Pulse 96 06/16/2019 6:10 PM [employer] Temperature 37.1 C (98.8 F) 06/16/2019 4:08 PM [employer] Respiratory Rate 14 06/16/2019 6:10 PM [employer] Oxygen Saturation 99% 06/16/2019 6:10 PM [employer] Inhaled Oxygen Concentration - - Weight 79.4 kg (175 lb) 06/16/2019 4:08 PM [employer] Height - - Body Mass Index 31 07/17/2017 4:01 PM CDT documented in this encounter Discharge Instructions AttachmentsThe following attachments cannot be sent through Care Everywhere.Symptoms With Uncertain Cause (Turkish)Upper GI Bleeding (Stable) ( Turkish)documented in this encounter Plan of Treatment Health Maintenance Due Date Last Done Comments DTaP,Tdap,and Td Vaccines (1 01/28/1984 - Tdap) Breast Cancer Screening 2013 (MAMMOGRAM) PAP SMEAR 02/05/2015 02/06/2012, 07/25/2007, 11/26/2003 INFLUENZA VACCINE (#1) 2018 PNEUMOCOCCAL 0-64 YEARS Aged Out No longer eligible based COMBINED SERIES on patient's age to complete this topic documented as of this encounter Procedures Procedure Name Priority Date/Time Associated Comments Diagnosis CT SOFT TISSUE NECK W STAT 06/16/2019 6:04 Globus sensation Results for this CONTRAST PM [employer] INSPECTOR procedure are in the results section. CBC WITH DIFFERENTIAL STAT 06/16/2019 4:30 Globus sensation Results for this PM [employer] procedure are in the results section. CBC WITH DIFFERENTIAL STAT 06/16/2019 4:30 Globus sensation Results for this PM [employer] procedure are in the results section. COMP. METABOLIC PANEL STAT 06/16/2019 4:30 Globus sensation Results for this (53127) PM [employer] procedure are in the results section. NOTICE OF PRIVACY Routine 06/16/2019 3:52 PRACTICES PM [employer] documented in this encounter Results CT SOFT TISSUE NECK W CONTRAST (06/16/2019 6:04 PM [employer] INSPECTOR) Specimen Impressions Performed At PACS/VR/DOSE No radiopaque foreign bodies seen. No neck masses or soft tissue asymmetry identified. Diffusely enlarged thyroid gland with multiple variable sizes hypodense nodule suggestive of goiter. Clinical correlation is recommended. Narrative Performed At EXAM: CT SOFT TISSUE NECK W CONTRAST PACS/VR/DOSE HISTORY: Superficial foreign body of throat TECHNIQUE: CT of the neck was performed following intravenous administration of contrast. Sagittal and coronal reformats were generated. COMPARISON: None. FINDINGS: The nasopharynx, oropharynx, larynx and hypopharynx are patent without soft tissue asymmetry. No radiopaque foreign body identified. The trachea and cervical esophagus are unremarkable. The oral tongue and floor of mouth are unremarkable. Few intraparotid lymph nodes are noted. The parotid and submandibular salivary glands are otherwise unremarkable. No stone is identified along the course of [place]'s or Stensen's duct. The thyroid gland is diffusely enlarged with multiple variable sizes hypodense nodule suggestive of multinodular goiter. No pathologically enlarged or morphologically suspicious cervical lymph nodes. Cervical spine is unremarkable. The visualized lung apices are clear. Procedure Note [facility], Radiant Results Inft User - 06/16/2019 6:17 PM [employer] INSPECTOR EXAM: CT SOFT TISSUE NECK W CONTRAST HISTORY: Superficial foreign body of throat TECHNIQUE: CT of the neck was performed following intravenous administration of contrast. Sagittal and coronal reformats were generated. COMPARISON: None. FINDINGS: The nasopharynx, oropharynx, larynx and hypopharynx are patent without soft tissue asymmetry. No radiopaque foreign body identified. The trachea and cervical esophagus are unremarkable. The oral tongue and floor of mouth are unremarkable. Few intraparotid lymph nodes are noted. The parotid and submandibular salivary glands are otherwise unremarkable. No stone is identified along the course of [place]'s or Stensen's duct. The thyroid gland is diffusely enlarged with multiple variable sizes hypodense nodule suggestive of multinodular goiter. No pathologically enlarged or morphologically suspicious cervical lymph nodes. Cervical spine is unremarkable. The visualized lung apices are clear. IMPRESSION No radiopaque foreign bodies seen. No neck masses or soft tissue asymmetry identified. Diffusely enlarged thyroid gland with multiple variable sizes hypodense nodule suggestive of goiter. Clinical correlation is recommended. Performing Organization Address City/State/Zipcode Phone Number PACS/VR/DOSE CBC WITH DIFFERENTIAL (06/16/2019 4:30 PM [facility] [employer] INSPECTOR) WBC 9.59 4.30 - 11.10 [facility] 10*3/L [facility] RBC 4.01 3.93 - 5.25 [facility] 10*6/L [facility] HGB 8.7 (L) 11.6 - 15.0 [facility] g/dL [facility] HCT 29.7 (L) 35.7 - 45.2 % [facility] MCV 74.1 (L) 80.6 - 95.5 fL [facility] MCH 21.7 (L) 25.9 - 32.8 pg [facility] MCHC 29.3 (L) 31.6 - 35.1 [facility] g/dL [facility] RDW-SD 49.7 39.0 - 49.9 fL [facility] RDW-CV 18.7 (H) 12.0 - 15.5 % [facility] PLT 371 (H) 166 - 358 [facility] 10*3/L [facility] MPV 11.5 9.5 - 12.9 fL [facility] NRBC/100 WBC 0.0 0.0 - 10.0 /100 [facility] WBCs [facility] NRBC x10^3 <0.01 10*3/L [facility] GRAN MAT (NEUT) % 57.4 % [facility] IMM GRAN % 0.30 % [facility] LYMPH % 33.9 % [facility] MONO % 5.4 % [facility] EOS % 2.5 % [facility] BASO % 0.5 % [facility] GRAN MAT x10^3(ANC) 5.50 1.88 - 7.09 [facility] 10*3/uL [facility] IMM GRAN x10^3 0.03 0.00 - 0.06 [facility] 10*3/uL [facility] LYMPH x10^3 3.25 1.32 - 3.29 [facility] 10*3/uL [facility] MONO x10^3 0.52 0.33 - 0.92 [facility] 10*3/uL [facility] EOS x10^3 0.24 0.03 - 0.39 [facility] 10*3/uL [facility] BASO x10^3 0.05 0.01 - 0.07 [facility] 10*3/uL [facility] Specimen Blood - VENOUS Performing Organization Address City/State/Zipcode Phone Number [facility] CLIA: [id number], [address] [place] [address] [phone] COMP. METABOLIC PANEL (05055) (06/16/2019 4:30 PM [employer] [employer] INSPECTOR) NA 141 135 - 145 [facility] mmol/L [facility] K 3.2 (L) 3.5 - 5.0 [facility] mmol/L [facility] CL 107 98 - 108 mmol/L [facility] CO2 TOTAL 24 23 - 31 mmol/L [facility] AGAP 10 2 - 16 [facility] BUN 17 7 - 23 mg/dL [facility] GLUCOSE 88 70 - 110 mg/dL [facility] CREATININE 0.72 0.50 - 1.04 [facility] mg/dL [facility] TOTAL BILI 0.2 0.1 - 1.1 mg/dL [facility] CALCIUM 9.2 8.6 - 10.6 [place] mg/dL [facility]ITAL [facility] T PROTEIN 7.6 6.3 - 8.2 g/dL [facility] ALBUMIN 4.7 3.5 - 5.0 g/dL [facility] ALK PHOS 76 34 - 122 U/L [facility] ALTv 12 5 - 35 U/L [facility] AST(SGOT) 22 13 - 40 U/L [facility] eGFR Calculation 87.2 mL/min/1.73m2 [facility] ([facility] [place]ian) eGFR Calculation 105.7 mL/min/1.73m2 [facility] () [facility] Specimen Blood - VENOUS Narrative Performed At Association of Glomerular Filtration Rate (GFR) [facility] and Staging of Kidney Disease* + + +- + | GFR (mL/min/1.73 m2) | With Kidney Damage | Without Kidney Damage + + +- + | >90 | Stage one | Normal + + +- + | 60-89 | Stage two | Decreased GFR + + +- + | 30-59 | Stage three | Stage three + + +- + | 15-29 | Stage four | Stage four + + +- + | <15 (or dialysis) | Stage five | Stage five + + +- + *Each stage assumes the associated GFR level has been in effect for at least three months. Stages 1 to 5, with or without kidney disease, indicate chronic kidney disease. Notes: Determination of stages one and two (with eGFR >59mL/min/1.73 m2) requires estimation of kidney damage for at least three months as defined by structural or functional abnormalities of the kidney, manifested by either: Pathological abnormalities or Markers of kidney damage (including abnormalities in the composition of the blood or urine or abnormalities in imaging tests). Performing Organization Address City/State/Zipcode Phone Number [facility] CLIA: [id number], [address] [place], [place] [id number] [phone] documented in this encounter Visit Diagnoses Diagnosis Globus sensation - Primary Gastrointestinal malfunction arising from mental factors Thyroid nodule Nontoxic uninodular goiter Hematemesis, presence of nausea not specified documented in this encounter Administered Medications Medication Order MAR Action Action Date Dose Rate Site iohexol (OMNIPAQUE 350 BULK-100 Given 06/16/2019 6:10 PM [employer]OR 100 mL mL) injection 100 mL 100 mL, Intravenous, ONCE, 1 dose, 06/16/19 at 1815, Routine maalox:diphenhydrAMINE:lidocaine2 %viscous Given 06/16/2019 4:34 PM [employer]OR 15 mL 1:1:1: suspension (COMPOUNDED) 15 mL, Oral, ONCE, 1 dose, 06/16/19 at 1730, Routine documented in this encounter"
--- NOTE | 2019-06-16 21:08 | ER ---
Nurse's Notes [facility] Name: Jesus Machado Age: 44 yrs Sex: Female : 1975 Arrival Date: 06/16/2019 Time: 20:39 Bed 4 Private MD: Diagnosis: Cough;Foreign body in pharynx Presentation: 06/15 20:50 Chief complaint: Patient states: I was throwing up and this string like thing came up jb4 and I cannot pull it out. I was at [facility] earlier prior to this and the test did not show anything. 20:50 Coronavirus screen: The patient has NOT traveled to [place] in the past 14 days. Proceed jb4 with normal triage procedures. The patient has NOT had contact with known and/or suspected case of Coronavirus. Proceed with normal triage procedures. Ebola Screen: No symptoms or risks identified at this time. 20:50 Method Of Arrival: Ambulatory jb4 21:00 Initial Sepsis Screen: Does the patient meet any 2 criteria? Temp <36.0*C (96.8*F)) or jb4 > 38.3*C (100.9*F). HR > 90 bpm. Yes Does the patient have a suspected source of infection? No. Patient's initial sepsis screen is negative. If YES to both, name of provider notified: Timmy Us MD. Risk Assessment: Do you want to hurt yourself or someone else? Patient reports no desire to harm self or others. 21:00 Acuity: FERMIN 3 jb4 Historical: - Allergies: 20:55 No Known Allergies; jb4 - Home Meds: 20:55 None [Active]; jb4 - PMHx: 20:55 Hypertension; insomnia; Hernia; jb4 - PSHx: 20:55 right shoulder; Hernia repair; Appendectomy; jb4 - Immunization history:: Adult Immunizations up to date. - Social history:: Smoking status: Patient denies any tobacco usage or history of. Patient/guardian denies using alcohol, street drugs. - Family history:: not pertinent. - Hospitalizations: : No recent hospitalization is reported. Screenin:55 Abuse screen: Denies threats or abuse. Nutritional screening: No deficits noted. jb4 Tuberculosis screening: No symptoms or risk factors identified. Fall Risk None identified. Assessment: 20:55 General: Appears in no apparent distress. uncomfortable. Pain: Complains of pain in jb4 headache, soar throat. Neuro: Level of Consciousness is awake, alert, obeys commands, Oriented to person, place, time, situation. Cardiovascular: Patient's skin is warm and dry. Respiratory: Airway is patent Respiratory effort is even, unlabored, Respiratory pattern is regular, symmetrical, Denies cough, shortness of breath labored breathing. GI: Reports nausea. : No signs and/or symptoms were reported regarding the genitourinary system. EENT: Throat is clear is pink with gag reflex present, Non obstructing foreign body noted.. Derm: Skin is intact, Skin is dry, Skin is normal, Skin temperature is warm. Musculoskeletal: Circulation, motion, and sensation intact. Range of motion: intact in all extremities. 21:00 Reassessment: Provider consulted patient, notified her that test results would be most jb4 likely the same here like at prior facility. Notified patient that we do not have the required specialist here to find out what is causing the problem. Advised patient to go to a facility with an ENT so that they could perform test to figure out what was causing the foreign body that appeared after vomiting. ED physician notified of vital signs, cleared pt to leave to go to appropriate facility. Vital Signs: 21:00 BP 172 / 102; Pulse 111; Resp 18; Temp 101.3(O); Pulse Ox 100% on R/A; Weight 79.38 kg jb4 (R); Height 5 ft. 3 in. (160.02 cm) (R); Pain 10/10; 21:00 Body Mass Index 31.00 (79.38 kg, 160.02 cm) jb4 ED Course: 20:39 Patient arrived in ED. ds1 20:42 Timmy Us MD is Attending Physician. rn 20:55 Arm band placed on right wrist. jb4 20:55 Patient has correct armband on for positive identification. jb4 20:55 No provider procedures requiring assistance completed. Patient did not have IV access jb4 during this emergency room visit. 21:04 Triage completed. jb4 Administered Medications: No medications were administered Outcome: 21:08 Discharge ordered by MD. rn 21:13 Medical screen evaluation completed per provider. Patient declined treatment. jb4 21:13 Condition: stable 21:13 Following a medical screening exam, the patient was provided information regarding alternative care sites and resources available per registration personnel. 21:13 Patient left the ED. jb4 Signatures: Lorena Ramirez ds1 Timmy Us MD MD rn Bryson, James, RN RN jb4
--- NOTE | 2019-06-16 21:09 | EDPHYS ---
Physician Documentation [facility] Name: Jesus Machado Age: 44 yrs Sex: Female : 1975 Arrival Date: 06/16/2019 Time: 20:39 Bed 4 Private MD: ED Physician Timmy Us HPI: 06/15 21:00 This 44 yrs old Black Female presents to ER via Unassigned with complaints of Vomiting rn - Blood, Foreign Body - in Mouth. 21:00 The patient presents with pain. The problem is located in the throat. Onset: The rn symptoms/episode began/occurred at an unknown time. Duration: The symptoms are intermittent. Modifying factors: The symptoms are alleviated by nothing, the symptoms are aggravated by nothing. Severity of symptoms: At their worst the symptoms were mild, in the emergency department the symptoms are unchanged. The patient has experienced similar episodes in the past. Reports seen multiple times today for this problem, diagnosed with ulcer of palate here, coughed up or threw up blood after leaving, went to [place], had CT neck without acute findings. Prior to arrival, coughed up something again, opaque, painful to pull, and seems attached to something. NO sob/chest pain.. Historical: - Allergies: 20:55 No Known Allergies; jb4 - Home Meds: 20:55 None [Active]; jb4 - PMHx: 20:55 Hypertension; insomnia; Hernia; jb4 - PSHx: 20:55 right shoulder; Hernia repair; Appendectomy; jb4 - Immunization history:: Adult Immunizations up to date. - Social history:: Smoking status: Patient denies any tobacco usage or history of. Patient/guardian denies using alcohol, street drugs. - Family history:: not pertinent. - Hospitalizations: : No recent hospitalization is reported. ROS: 21:00 Constitutional: Negative for fever, chills, and weight loss, Eyes: Negative for injury, rn pain, redness, and discharge, ENT: + sore throat and mucus Neck: Negative for injury, and swelling, Cardiovascular: Negative for chest pain, palpitations, and edema, Respiratory: + cough, neg for sob Abdomen/GI: Negative for abdominal pain, diarrhea, and constipation, MS/Extremity: Negative for injury and deformity, Skin: Negative for injury, rash, and discoloration, Neuro: Negative for headache, weakness, numbness, tingling, and seizure. Exam: 21:00 Constitutional: This is a well developed, well nourished patient who is awake, alert, rn and in no acute distress. Head/Face: Normocephalic, atraumatic. Eyes: Pupils equal round and reactive to light, extra-ocular motions intact. Lids and lashes normal. Conjunctiva and sclera are non-icteric and not injected. Cornea within normal limits. Periorbital areas with no swelling, redness, or edema. ENT: + mild pharyngeal erythema, + long 3-4mm thick opaque stringy/cast like tubular structure originating seems like hypopharynx, no blood or bleeding, no ulceration. + post-nasal drip that is clear. Is maintaining airway and no pooling of secretions. Neck: Trachea midline, no thyromegaly or masses palpated, and no cervical lymphadenopathy. Supple, full range of motion without nuchal rigidity, or vertebral point tenderness. No Meningismus. Cardiovascular: Regular rate and rhythm. No pulse deficits. Respiratory: No increased work of breathing, no retractions or nasal flaring. Skin: Warm, dry MS/ Extremity: Pulses equal, no cyanosis. Neurovascular intact. Full, normal range of motion. Equal circumference. Neuro: Awake and alert, GCS 15, oriented to person, place, time, and situation. Cranial nerves II-XII grossly intact. Motor strength 5/5 in all extremities. Sensory grossly intact. Cerebellar exam normal. Normal gait. Vital Signs: 21:00 BP 172 / 102; Pulse 111; Resp 18; Temp 101.3(O); Pulse Ox 100% on R/A; Weight 79.38 kg jb4 (R); Height 5 ft. 3 in. (160.02 cm) (R); Pain 10/10; 21:00 Body Mass Index 31.00 (79.38 kg, 160.02 cm) jb4 MDM: 20:42 Patient medically screened. rn 21:00 Differential diagnosis: throat infection, flu, strep, stomatitis, esophagitis. Data rn reviewed: vital signs, nurses notes. Counseling: I had a detailed discussion with the patient and/or guardian regarding:. ED course: Had long discussion with patient, given neg CT neck and bloodwork just a few hours ago, unlikely to benefit from CT repeat. Offered lidocaine and trial to remove tubular structure from throat, does not want me to remove it. Told her we do not have ENT here, and I recommend scope by ENT to evaluate this structure. Patient and family choose to leave to seek care at another facility for definitive care vs temporary solution.. Administered Medications: No medications were administered Disposition: 06/16/19 21:08 Discharged to Home. Impression: Cough, Foreign body in pharynx. - Condition is Stable. - Discharge Instructions: Cough, Adult, Laryngoscopy. - Medication Reconciliation Form, Thank You Letter, Antibiotic Education, Prescription Opioid Use form. - Follow up: Private Physician; When: Upon discharge from the Emergency Department; Reason: Recheck today's complaints, Re-evaluation by your physician. - Problem is new. - Symptoms have improved. Signatures: Timmy Us MD MD rn Bryson, James, RN RN jb4 Corrections: (The following items were deleted from the chart) 21:13 21:08 06/16/2019 21:08 Discharged to Home. Impression: Cough; Foreign body in pharynx. jb4 Condition is Stable. Forms are Medication Reconciliation Form, Thank You Letter, Antibiotic Education, Prescription Opioid Use. Follow up: Private Physician; When: Upon discharge from the Emergency Department; Reason: Recheck today's complaints, Re-evaluation by your physician. Problem is new. Symptoms have improved. rn
== END 2019-06-16 21:13 | disposition home or self-care (01) ==
LOC: ER 20:38
DX: T17.208A Unspecified foreign body in pharynx causing other injury, initial encounter (principal); X58.XXXA Exposure to other specified factors, initial encounter; Y93.9 Activity, unspecified; R05 Cough
CPT/HCPCS: 99281

== ENCOUNTER 2019-08-18 20:14 | Emergency (ER) | payer SELFPAY ==
--- OUTSIDE RECORDS SUMMARY | 2019-08-18 20:16 | XMS REPORT ---
:1975 Author Organization [facility] t Address [address] [place] [address] [address] [place] [address] Care Team Providers Name Role Phone Unavailable Unavailable Unavailable Problems This patient has no known problems. Allergies, Adverse Reactions, Alerts This patient has no known allergies or adverse reactions. Medications This patient has no known medications.
[2019-08-18] MEDS ORDERED: MORPHINE 4 MG/ML SYR ONE (20:43)
[2019-08-18] MEDS ORDERED: ONDANSETRON 4 MG/2 ML VIAL ONE ×2 (20:43→22:53)
[2019-08-18] MEDS ORDERED: NA CHLORIDE 0.9% 1,000 ML ONE (21:00)
[2019-08-18 21:18] LABS: Absolute Lymphocytes (CBC) 3.1 K/uL (0.7-4.9); Basophils % 0.4 % (0-1.3); Hematocrit 37.4 % (36.0-45.0); Lymphocytes % 18.6 % (15.3-44.8); MPV 9.8 fL (7.6-11.3); RBC Red Blood Cell Count 4.92 M/uL (3.86-4.86)
[2019-08-18 21:26] LABS: Protime INR 1.05
[2019-08-18 21:39] LABS: ALT/SGPT 46 U/L (12-78); AST/SGOT 29 U/L (15-37); Albumin 4.1 g/dL (3.4-5.0); Alkaline Phosphatase 92 U/L (45-117); BUN Blood Urea Nitrogen 22 mg/dL (7-18); Bicarbonate 19 mmol/L (21-32); Bilirubin Direct 0.1 mg/dL (0-0.2); Bilirubin Total 0.5 mg/dL (0.2-1.0); Glucose Level 190 mg/dL (74-106); Magnesium 2.3 mg/dL (1.8-2.4); NT PRO-BNP 32 pg/mL (<125); Potassium 3.5 mmol/L (3.5-5.1); Protein, Total 8.8 g/dL (6.4-8.2); Sodium Level 141 mmol/L (136-145); Troponin (Emerg Dept Use Only) < 0.02 ng/mL (0.0-0.045)
[2019-08-18] MEDS ORDERED: HEPARIN/D5W 25,000 UNIT/500 ML BAG IV ONE (21:50)
--- NOTE | 2019-08-18 22:00 | RAD REPORT ---
EXAM DESCRIPTION: US - Extremity Venous Uni Ltd - 08/18/2019 9:51 pm CLINICAL HISTORY: Pain;Radiculopathy COMPARISON: None. TECHNIQUE: Real-time sonographic evaluation of the left lower extremity deep venous system was perfo rmed. FINDINGS: Echogenic material is present within the left common femoral, superficial femoral and popl iteal veins. Compression is decreased. Posterior tibial vein was not well visualized. IMPRESSION: Left leg acute deep venous thrombosis from groin to knee
--- NOTE | 2019-08-18 22:06 | RAD REPORT ---
EXAM DESCRIPTION: US - Lower Extremity Artery Uni Ltd - 08/18/2019 9:51 pm CLINICAL HISTORY: Pain;Radiculopathy COMPARISON: Lower Ext Angio dated 08/18/2019 TECHNIQUE: Doppler evaluation of the left leg arterial tree performed. Waveforms and velocity values were obtained along with visual inspection. FINDINGS: A triphasic to biphasic waveform pattern was present in the left common femoral artery, pacheco perficial femoral and popliteal arteries. Monophasic dampened waveform pattern seen in the left poste rior tibial and dorsalis pedis arteries. No focal flow restricting lesion was identifiable. Velocity values at the ankle are substantially reduced. . IMPRESSION: Triphasic and biphasic waveform patterns noted from groin to knee. Substantially dampened monophasic waveform pattern at the posterior tibial and dorsalis pedis arterie s at the ankle.
[2019-08-18] MEDS ORDERED: FENTANYL CITR 100 MCG/2 ML ONE (22:11)
--- NOTE | 2019-08-18 22:16 | RAD REPORT ---
EXAM DESCRIPTION: CT - Lower Ext Angio - 08/18/2019 9:37 pm CLINICAL HISTORY: LEG PAIN COMPARISON: Lower Extremity Artery Uni Ltd dated 08/18/2019 TECHNIQUE: During dynamic enhancement using nonionic IV contrast, axial 3 millimeter thick images we re obtained from the pelvis to the ankle as a CT angio runoff study. Sagittal and coronal reformatted images were generated and reviewed. The CT scan was performed using dose optimization techniques as appropriate to a performed exam incl uding one or more of the following: Automated exposure control, adjustment of the mA and/or kV accord ing to patient size (this includes techniques or standardized protocols for targeted exams where dose is matched to indication/reason for exam) and use of iterative reconstruction technique. FINDINGS: No pelvic mass or other soft tissue abnormality. No ascites or lymphadenopathy. CT angio a rterial study does not optimally visualize the deep veins. The left common femoral, superficial and p opliteal veins are enlarged relative to the right. Separately reported ultrasound study showed eviden ce for acute left leg DVT. The enlarged veins compared to the right would support that diagnosis. The left common iliac artery is intact. Left external iliac artery also intact but smaller than the r ight. The left common femoral and superficial femoral arteries on the left are intact but smaller in diameter when compared to the right leg. Little if any identifiable blood flow is seen below the left popliteal artery. No collateralized pathway seen. The ultrasound study did demonstrate very minimal posterior tibial and dorsalis pedis blood flow. That blood flow was not evident on CT angio examinati on. No muscle mass or hematoma identified. Fatty tissue show no congestion or edema. IMPRESSION: Complete or near complete loss of blood flow distal to the left popliteal artery. There is relatively abrupt transition to diminished or absent flow; however, a specific clot or focal occlu sive process is not confirmed. Enlarged left leg deep veins consistent with the thrombus seen on the separately reported ultrasound study. Veins are not opacified by contrast on CT angio study.
[2019-08-18 23:05] LABS: Anisocytosis 1+; Blood Morphology Comment NOTED (NOT SEEN); Ovalocytes 2+; Platelet Estimate ADEQ; Urine White Blood Cell Casts OK
--- NOTE | 2019-08-18 23:11 | EDPHYS ---
Physician Documentation [facility] Name: Jesus Machado Age: 44 yrs Sex: Female : 1975 Arrival Date: 08/18/2019 Time: 20:14 Bed 20 Private MD: ED Physician Mo Abarca HPI: 08/17 21:47 This 44 yrs old Black Female presents to ER via Wheelchair with complaints of Leg Pain. tw4 21:47 The patient presents with pain, that is acute. The complaints affect the left tw4 quadriceps, left knee and left long. RECEPTION: 22:57 LMP 08/15/2019 vc Historical: - Allergies: 20:33 No Known Allergies; ll1 - PMHx: 20:33 Hypertension; insomnia; Hernia; ll1 - PSHx: 20:33 Hernia repair; Appendectomy; ll1 - Immunization history:: Adult Immunizations up to date. - Social history:: Patient/guardian denies using alcohol, street drugs, tobacco products, Smoking status: Patient denies any tobacco usage or history of. ROS: 23:13 MS/extremity: Positive for tw4 08/18 06:38 Constitutional: Negative for fever, chills, and weight loss, Eyes: Negative for injury, tw4 pain, redness, and discharge, Respiratory: Negative for shortness of breath, cough, wheezing, and pleuritic chest pain, Abdomen/GI: Negative for abdominal pain, nausea, vomiting, diarrhea, and constipation. MS/extremity: Positive for decreased range of motion, erythema, swelling, tenderness. Exam: 06:34 Constitutional: This is a well developed, well nourished patient who is awake, alert, tw4 and in no acute distress. Head/Face: Normocephalic, atraumatic. Chest/axilla: Normal chest wall appearance and motion. Nontender with no deformity. No lesions are appreciated. Cardiovascular: Regular rate and rhythm with a normal S1 and S2. No gallops, murmurs, or rubs. Normal PMI, no JVD. No pulse deficits. Respiratory: Lungs have equal breath sounds bilaterally, clear to auscultation and percussion. No rales, rhonchi or wheezes noted. No increased work of breathing, no retractions or nasal flaring. Abdomen/GI: Soft, non-tender, with normal bowel sounds. No distension or tympany. No guarding or rebound. No evidence of tenderness throughout. Skin: Warm, dry with normal turgor. Normal color with no rashes, no lesions, and no evidence of cellulitis. Neuro: Awake and alert, GCS 15, oriented to person, place, time, and situation. Cranial nerves II-XII grossly intact. Motor strength 5/5 in all extremities. Sensory grossly intact. Cerebellar exam normal. Normal gait. 06:34 Musculoskeletal/extremity: Extremities: grossly normal except: noted in the left leg: decreased ROM, deformity, pain, swelling, tenderness, ROM: limited active range of motion due to pain, limited passive range of motion due to pain, Pulses: are absent in the left femoral artery, left popliteal artery and left posterior tibial artery, Perfusion: the patient is normally perfused throughout, Perfusion: the extremity is cold, dusky, pale. Vital Signs: 08/17 20:30 BP 91 / 74; Pulse 130; Resp 19; Temp 99.0; Pulse Ox 100% ; Pain 10/10; ll1 20:45 BP 103 / 82; Pulse 130; Resp 19; Pulse Ox 100% ; vc 21:30 BP 114 / 78; Pulse 121; Resp 18; Pulse Ox 100% on R/A; Weight 77.4 kg; vc 22:30 BP 110 / 82; Pulse 94; Resp 19; Pulse Ox 100% on R/A; vc 23:30 BP 108 / 85; Pulse 87; Resp 18; Temp 98.9(O); Pulse Ox 100% on R/A; vc 08/18 00:30 BP 120 / 82; Pulse 88; Resp 18; Pulse Ox 100% on R/A; vc MDM: 08/17 20:21 Patient medically screened. tw4 08/18 06:36 Differential diagnosis: DVT, arterial occlusion. Data reviewed: vital signs, nurses tw4 notes. Data reviewed: lab test result(s), cardiac enzymes, CBC, electrolytes, hepatic panel, EKG, radiologic studies, CT scan, plain films. Data interpreted: Pulse oximetry: Interpretation: normal. Test interpretation: by ED physician or midlevel provider: ECG. Counseling: I had a detailed discussion with the patient and/or guardian regarding: the historical points, exam findings, and any diagnostic results supporting the discharge/admit diagnosis, lab results, radiology results. Medication response: morphine markedly relieved the patient's pain. Symptoms have improved. Response to treatment: and as a result, I will admit patient. ED course: Pt was found to have large DVT involving the superficial ,common femoral and popliteal vein. Pt also has a arterial occlusion at the level of the popliteal with no distal flow. 08/17 20:31 Order name: Basic Metabolic Panel tw4 08/17 20:31 Order name: CBC with Diff; Complete Time: 23:16 tw4 08/17 20:31 Order name: LFT's; Complete Time: 22:46 tw4 08/17 20:31 Order name: Magnesium; Complete Time: 22:46 tw4 08/17 20:31 Order name: NT PRO-BNP; Complete Time: 22:46 tw4 08/17 20:31 Order name: PT-INR; Complete Time: 22:46 tw4 08/17 20:31 Order name: Troponin (emerg Dept Use Only); Complete Time: 22:46 tw4 08/17 20:31 Order name: Basic Metabolic Panel; Complete Time: 22:46 EDMS 08/17 20:36 Order name: Extremity Venous Unilateral Ltd; Complete Time: 22:46 tw4 08/17 20:36 Order name: LE Artery Uni Ltd; Complete Time: 22:46 tw4 08/17 20:36 Order name: Lower Ext Angio; Complete Time: 22:46 EDMS 08/17 21:05 Order name: Lactate; Complete Time: 22:46 08/17 21:23 Order name: CBC Smear Scan; Complete Time: 23:16 EDMS 08/17 20:31 Order name: EKG; Complete Time: 20:32 tw4 08/17 20:31 Order name: Cardiac monitoring; Complete Time: 22:53 tw4 08/17 20:31 Order name: EKG - Nurse/Tech; Complete Time: 22:54 tw4 08/17 20:31 Order name: IV Saline Lock; Complete Time: 21:41 tw4 08/17 20:31 Order name: Labs collected and sent; Complete Time: 21:41 tw4 08/17 20:31 Order name: O2 Per Protocol; Complete Time: 21:41 tw4 08/17 20:31 Order name: O2 Sat Monitoring; Complete Time: 21:41 tw4 EC:34 Rate is 114 beats/min. Rhythm is regular. QRS [place] is Normal. CA interval is normal. tw4 QRS interval is normal. QT interval is normal. No Q waves. T waves are Inverted in lead aVF. ST Segment is depressed in leads II, III, aVF, V5, V6. Clinical impression: NSR w/ Non-specific ST/T Changes and Sinus tachycardia. Interpreted by me. Reviewed by me. Administered Medications: 08/17 21:00 Drug: NS 0.9% 1000 ml Route: IV; Rate: 1 bolus; Site: left hand; vc 08/18 00:54 Follow up: IV Status: Completed infusion; IV Intake: 1000ml vc 08/17 21:01 Drug: morphine 4 mg Route: IVP; Site: left hand; vc 22:00 Follow up: Response: No adverse reaction; Pain is unchanged, physician notified vc 21:01 Drug: Zofran (Ondansetron) 4 mg Route: IVP; Site: left hand; vc 08/18 01:10 Follow up: Response: No adverse reaction; Nausea is decreased vc 08/17 22:02 Drug: Heparin (DVT/PE Drip) 18 units/kg/hr - (HEParin 56525 units, D5W 500 ml) vc {Co-Signature: ll1 (Arvind iRng RN).} Route: IV; Rate: bolus; Site: right upper arm; 22:15 Follow up: IV Status: Completed infusion; IV Intake: 120ml vc 22:13 Drug: Heparin (DVT/PE Drip) 18 units/kg/hr - (HEParin 36577 units, D5W 500 ml) vc {Co-Signature: ll1 (Arvind Ring RN).} Route: IV; Rate: calculated rate; Site: right upper arm; 08/18 00:53 Follow up: IV Status: Infusion continued upon transfer vc 08/17 22:44 Drug: fentaNYL (PF) 50 mcg Route: IVP; Site: left hand; vc 23:15 Follow up: Response: No adverse reaction; Pain is decreased vc 22:53 Drug: Zofran (Ondansetron) 4 mg Route: IVP; Site: left hand; vc 23:15 Follow up: Response: No adverse reaction; Nausea is decreased vc Disposition: 08/18/19 23:10 Transfer ordered to [facility]. Diagnosis are Acute embolism and thrombosis of unspecified deep veins of left distal lower extremity, Acute embolism and thrombosis of unspecified deep veins of left proximal lower extremity, Arterial embolism and thrombosis. - Reason for transfer: Higher level of care. - Accepting physician is Dr Sullivan. - Condition is Stable. - Problem is new. - Symptoms are unchanged. Signatures: Dispatcher [employer] EDDE Adelso Neumann RN RN sg Mo Abarca MD MD tw4 Anusha Lee RN RN vc Lewis, Lynsay, RN RN ll1 Arvind Ring RN ll1 Corrections: (The following items were deleted from the chart) 22:57 21:44 Chest For PE Angio+CT.RAD.BRZ ordered. [facility] 08/18 01:09 08/17 23:10 08/18/2019 23:10 Transfer ordered to [facility]. Diagnosis is Acute embolism and thrombosis of unspecified deep veins of left distal lower extremity; Acute embolism and thrombosis of unspecified deep veins of left proximal lower extremity; Arterial embolism and thrombosis. Reason for transfer: Higher level of care. Accepting physician is Dr Sullivan. Condition is Stable. Problem is new. Symptoms are unchanged. tw4
--- NOTE | 2019-08-18 23:11 | ER ---
Nurse's Notes [facility] Name: Jesus Machado Age: 44 yrs Sex: Female : 1975 Arrival Date: 08/18/2019 Time: 20:14 Bed 20 Private MD: Diagnosis: Acute embolism and thrombosis of unspecified deep veins of left distal lower extremity;Acute embolism and thrombosis of unspecified deep veins of left proximal lower extremity;Arterial embolism and thrombosis Presentation: 08/17 20:30 Chief complaint: Patient states: Sudden onset of leg pain, cramping, and swelling 45 ll1 minutes FIELD [employer] TE[employer] after eating supper. + discoloration noted of left foot (appears dusky) and reports tingling of LLE. Dr. Abarca informed immediately. Coronavirus screen: Proceed with normal triage. Patient denies a cough. Patient denies shortness of breath or difficulty breathing. Patient denies measured and/or subjective temperature greater than 100.4F prior to today's visit. Patient denies travel on a cruise ship or to a country the [facility] currently lists as an affected area. Patient denies contact with known and/or suspected case of COVID-19. Ebola Screen: Patient denies travel to an Ebola-affected area in the 21 days before illness onset. Initial Sepsis Screen: Does the patient meet any 2 criteria? HR > 90 bpm. No. Patient's initial sepsis screen is negative. Does the patient have a suspected source of infection? No. Patient's initial sepsis screen is negative. Risk Assessment: Do you want to hurt yourself or someone else? Patient reports no desire to harm self or others. Onset of symptoms was August 18, 2019. 20:30 Method Of Arrival: Wheelchair ll1 20:30 Acuity: FERMIN 2 ll1 Triage Assessment: 20:30 General: Appears in no apparent distress. Behavior is calm. Pain: Complains of pain in vc left leg Pain currently is 10 out of 10 on a pain scale. NEURODIAGNOSTIC TECH: 22:57 LMP 08/15/2019 vc Historical: - Allergies: 20:33 No Known Allergies; ll1 - PMHx: 20:33 Hypertension; insomnia; Hernia; ll1 - PSHx: 20:33 Hernia repair; Appendectomy; ll1 - Immunization history:: Adult Immunizations up to date. - Social history:: Patient/guardian denies using alcohol, street drugs, tobacco products, Smoking status: Patient denies any tobacco usage or history of. Screenin:34 Abuse screen: Denies threats or abuse. Nutritional screening: No deficits noted. vc Tuberculosis screening: No symptoms or risk factors identified. Fall Risk None identified. Assessment: 20:40 General: Appears in no apparent distress. uncomfortable, Behavior is cooperative, vc anxious, crying, restless. Pain: Complains of pain in left leg Pain radiates to "all over" Pain currently is 10 out of 10 on a pain scale. Neuro: Level of Consciousness is awake, alert, obeys commands, Oriented to person, place, time, situation, Appropriate for age. Cardiovascular: Patient's skin is warm and dry. Respiratory: Airway is patent Respiratory effort is even, unlabored, Respiratory pattern is symmetrical, shallow breathing. GI: No deficits noted. : No signs and/or symptoms were reported regarding the genitourinary system. Derm: Skin is purple on left foot. Musculoskeletal: joints are stiff and hand and right knee had to be manipulated for patient to lay flat. 21:39 Reassessment: Patient appears in no apparent distress at this time. Patient and/or vc family updated on plan of care and expected duration. Pain level reassessed. Ultrasound at bedside. Patient no longer crying, seems comfortable. 22:30 Reassessment: Patient appears in no apparent distress at this time. Patient and/or vc family updated on plan of care and expected duration. Pain level reassessed. Patient states symptoms have not improved. 23:30 Reassessment: Patient appears in no apparent distress at this time. Patient and/or vc family updated on plan of care and expected duration. Pain level reassessed. Patient is alert, oriented x 3, equal unlabored respirations, skin warm/dry/pink. Patient states symptoms have improved. 08/18 00:05 Reassessment: Report given to ROGELIO Carrasco at [facility]. vc 00:30 Reassessment: Patient appears in no apparent distress at this time. Patient and/or vc family updated on plan of care and expected duration. Pain level reassessed. Patient is alert, oriented x 3, equal unlabored respirations, skin warm/dry/pink. Patient states feeling better. Patient states symptoms have improved. 00:34 Reassessment: a repeat lactate is due at this time, primary nurse reports two missed sg attempts at drawling blood sample, updated on pt status, EMS transport is here for pt transfer to due to vascular status in extremity, pt not to be delayed for lab draw per , pt transported out of ED at this time. Vital Signs: 08/17 20:30 BP 91 / 74; Pulse 130; Resp 19; Temp 99.0; Pulse Ox 100% ; Pain 10/10; ll1 20:45 BP 103 / 82; Pulse 130; Resp 19; Pulse Ox 100% ; vc 21:30 BP 114 / 78; Pulse 121; Resp 18; Pulse Ox 100% on R/A; Weight 77.4 kg; vc 22:30 BP 110 / 82; Pulse 94; Resp 19; Pulse Ox 100% on R/A; vc 23:30 BP 108 / 85; Pulse 87; Resp 18; Temp 98.9(O); Pulse Ox 100% on R/A; vc 08/18 00:30 BP 120 / 82; Pulse 88; Resp 18; Pulse Ox 100% on R/A; vc ED Course: 08/17 20:14 Patient arrived in ED. cl3 20:21 Mo Abarca MD is Attending Physician. tw4 20:29 Anusha Lee, ROGELIO is Primary Nurse. vc 20:32 Triage completed. ll1 20:33 Arm band placed on Patient placed in an exam room, on a stretcher. ll1 20:45 Bed in low position. Call light in reach. Side rails up X2. vehicle monitor technician on. Pulse vc ox on. NIBP on. 20:48 Missed attempt(s): 22 gauge in left upper arm. Bleeding controlled, band aid applied, ll1 catheter tip intact. 20:50 Inserted saline lock: 22 gauge in left hand, using aseptic technique. Blood collected. ll1 20:55 Inserted saline lock: 22 gauge in right upper arm, using aseptic technique. ll1 21:37 Lower Ext Angio In Process Unspecified. EDMS 21:51 US Extremity Venous Unilateral Ltd In Process Unspecified. EDMS 21:51 US LE Artery Uni Ltd In Process Unspecified. EDMS 08/18 00:34 No provider procedures requiring assistance completed. Patient transferred, IV remains vc in place. Administered Medications: 08/17 21:00 Drug: NS 0.9% 1000 ml Route: IV; Rate: 1 bolus; Site: left hand; vc 08/18 00:54 Follow up: IV Status: Completed infusion; IV Intake: 1000ml vc 08/17 21:01 Drug: morphine 4 mg Route: IVP; Site: left hand; vc 22:00 Follow up: Response: No adverse reaction; Pain is unchanged, physician notified vc 21:01 Drug: Zofran (Ondansetron) 4 mg Route: IVP; Site: left hand; vc 08/18 01:10 Follow up: Response: No adverse reaction; Nausea is decreased vc 08/17 22:02 Drug: Heparin (DVT/PE Drip) 18 units/kg/hr - (HEParin 69178 units, D5W 500 ml) vc {Co-Signature: ll1 (Arvind Ring RN).} Route: IV; Rate: bolus; Site: right upper arm; 22:15 Follow up: IV Status: Completed infusion; IV Intake: 120ml vc 22:13 Drug: Heparin (DVT/PE Drip) 18 units/kg/hr - (HEParin 73719 units, D5W 500 ml) vc {Co-Signature: ll1 (Arvind Ring RN).} Route: IV; Rate: calculated rate; Site: right upper arm; 08/18 00:53 Follow up: IV Status: Infusion continued upon transfer vc 08/17 22:44 Drug: fentaNYL (PF) 50 mcg Route: IVP; Site: left hand; vc 23:15 Follow up: Response: No adverse reaction; Pain is decreased vc 22:53 Drug: Zofran (Ondansetron) 4 mg Route: IVP; Site: left hand; vc 23:15 Follow up: Response: No adverse reaction; Nausea is decreased vc Intake: 22:15 IV: 120ml; Total: 120ml. vc 08/18 00:54 IV: 1000ml; Total: 1120ml. vc Outcome: 08/17 23:10 ER care complete, transfer ordered by MD. perez 08/18 00:34 Transferred by ground EMS to [facility], Transfer form completed. vc Condition: improved Instructed on the need for admit, control, speaking with about whether or not to continue with control. Demonstrated understanding of instructions, follow-up care, medications. 00:34 Patient left the ED. vc Signatures: Dispatcher [employer] EDAdelso Le, RN RN Mo Velasquez MD MD tw4 Leeanne Ring cl3 Anusha Lee RN RN vc Lewis, Lynsay, RN RN ll1 Arvind Ring RN ll1 Corrections: (The following items were deleted from the chart) : 00:55 Condition: improved vc vc 00:55 Transferred by ground EMS [place] [facility] [place] vc completed. vc : 00:55 Instructed on the need for admit, control, speaking with about whether vc or not to continue with control. Demonstrated understanding of instructions, follow-up care, medications, vc 00:55 No provider procedures requiring assistance completed. vc vc 00:55 Patient transferred, IV remains in place. vc vc 01:12 01:09 Patient left the ED. sg vc
[2019-08-19 01:45] VITALS: O2SAT 100
[2019-08-19 01:50] VITALS: TEMP 98.9
[2019-08-19 01:52] VITALS: BP 120/82
--- NOTE | 2019-08-19 11:36 | EKG ---
Test Date: 2019-08-18 Test Time: 21:55:21 Furnace Helper: JOHNATHON MEASUREMENT RESULTS: Intervals: Rate: 114 CA: 132 QRSD: 90 QT: 354 QTc: 487 [place]: P: 75 CA: 132 QRS: 70 T: 27 INTERPRETIVE STATEMENTS: Sinus tachycardia Nonspecific ST abnormality Abnormal ECG Compared to ECG 08/27/2017 18:36:15 ST (T wave) deviation now present Sinus rhythm no longer present Electronically Signed On 08-19-19 11:34:49 CDT by Nomi Horan
== END 2019-08-19 01:09 | disposition short-term general hospital (02) ==
LOC: ER 20:14
DX: I82.4Z2 Acute embolism and thrombosis of unspecified deep veins of left distal lower extremity (principal); I82.4Y2 Acute embolism and thrombosis of unspecified deep veins of left proximal lower extremity; I74.3 Embolism and thrombosis of arteries of the lower extremities; I10 Essential (primary) hypertension
CPT/HCPCS: 36415; 73706; 80048; 80076; 83605; 83735; 83880; 84484; 85025; 85610; 93005; 93926; 93971; 99285; J2405; J3010; J7030; Q9967

== ENCOUNTER 2019-09-14 17:50 | Emergency (ER) | payer OTHER ==
--- OUTSIDE RECORDS SUMMARY | 2019-09-14 17:54 | XMS REPORT | Clinical Summary ---
:1975 Author Organization [facility] Address [address] [place] [address] Care Team Providers Name Role Phone Unavailable Primary Care Provider Unavailable Allergies No Known Allergies Medications Medication Sig Dispensed Refills Start Date End Date Status ascorbic acid, Take 2 0 Activ e vitamin C, (ASCORBIC tablets by ACID) 250 mg mouth daily. ChewIndications: vitamin C deficiency ferrous sulfate 325 Take 325 mg 0 Active (65 FE) MG by mouth tabletIndications: daily with iron deficiency breakfast. anemia pantoprazole Take 40 mg by 0 Act marvin (PROTONIX) 40 MG mouth daily. tabletIndications: gastric ulcer famotidine (PEPCID) Take 20 mg by 0 Active 20 MG tablet mouth 2 (two) times daily as needed for Heartburn. valACYclovir Take 500 mg 0 Activ e (VALTREX) 500 MG by mouth 2 tabletIndications: (two) times herpes zoster daily. ondansetron (ZOFRAN) Take 4 mg by 0 Active 4 MG tablet mouth 3 (three) times daily as needed for Nausea. traMADoL (ULTRAM) 50 Take 50 mg by 0 Active mg tablet mouth 2 (two) times daily. traZODone (DESYREL) Take 50 mg by 5 08/12/2019 Active 50 MG tablet mouth nightly. apixaban (ELIQUIS) 5 Take 2 208 tablet 0 08/23/2019 02 Active mg Tab tablet tablets (10 0 mg total) by mouth 2 (two) times daily for 7 days, THEN 1 tablet (5 mg total) 2 (two) times daily for 90 days. ondansetron Take 4 mg by 0 06/16/2019 Disc ontinued (ZOFRAN-ODT) 4 MG mouth every 8 0 disintegrating (eight) hours tablet as needed. 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 Acute deep vein thrombosis (DVT) of femoral vein of le ft lower extremity 08/19/2019 Ischemia of left lower extremity 08/19/2019 Encounters Date Type Specialty Care Team Description 08/22/2019 Surgery [place], VENOGRAM Branden Gross MD 08/19/2019 - Hospital Encounter General Internal Jian Medina deep vein thrombosis (DVT) of femoral vein of left lower extremity (HCC); 08/23/2019 Medicine MD Shadia Arterial embolism of left leg (HCC); Zack Curtis MD Ischemia of left lower extremity 08/19/2019 Telephone Emergency Medicine Shadia Medina MD 08/19/2019 Travel after 09/13/2018 Social History Tobacco Use Types Packs/Day Years Used Date Never Smoker Sex Assigned at Date Recorded Not on file Job Start Date Occupation Industry Not on file Not on file Not on file Travel History Travel Start Travel End No recent travel history available. Last Filed Vital Signs Vital Sign Reading Time Taken Blood Pressure 112/59 08/23/2019 11:49 AM CDT Pulse 59 08/23/2019 11:49 AM CDT Temperature 35.9 C (96.7 F) 08/23/2019 11:49 AM CDT Respiratory Rate 18 08/23/2019 11:49 AM CDT Oxygen Saturation 100% 08/23/2019 11:49 AM CDT Inhaled Oxygen Concentration - - Weight 78.1 kg (172 lb 3.2 oz) 08/19/2019 2:32 AM CDT Height 162.6 cm (5' 4") 08/19/2019 2:32 AM CDT Body Mass Index 29.56 08/19/2019 2:32 AM CDT Plan of Treatment Not on file Procedures Procedure Name Priority Date/Time Associated Comments Diagnosis CARDIAC CATH REPORT - 08/25/2019 3:03 SCAN PM CDT CARDIAC CATH REPORT - 08/25/2019 3:03 SCAN PM CDT APTT Routine 08/23/2019 6:22 Results for this AM CDT procedure are i n the results section. MAGNESIUM Routine 08/23/2019 6:22 Results for this AM CDT procedure are i n the results section. BASIC METABOLIC PANEL Routine 08/23/2019 6:22 Re sults for this (7) AM CDT procedure are i n the results section. CBC (HEMOGRAM ONLY) Routine 08/23/2019 6:22 Resu lts for this AM CDT procedure are i n the results section. POCT-ACT Routine 08/22/2019 1:50 Results for this PM CDT procedure are i n the results section. POCT-ACT Routine 08/22/2019 1:31 Results for this PM CDT procedure are i n the results section. VENOGRAM 08/22/2019 1:24 PVD (peripheral PM CDT vascular disease) (HCC) APTT Routine 08/22/2019 6:35 Results for this AM CDT procedure are i n the results section. TSH/FREE T4 IF Routine 08/22/2019 4:55 Results f or this INDICATED AM CDT procedure are i n the results section. BASIC METABOLIC PANEL Routine 08/22/2019 4:55 Re sults for this (7) AM CDT procedure are i n the results section. CBC (HEMOGRAM ONLY) Routine 08/22/2019 4:55 Resu lts for this AM CDT procedure are i n the results section. CTA CHEST,ABDOMEN & Routine 08/21/2019 2:09 Resu lts for this PELVIS - FOR DISSECTION PM CDT proc edure are in the results section. APTT Routine 08/21/2019 4:59 Results for this AM CDT procedure are i n the results section. CBC (HEMOGRAM ONLY) Routine 08/21/2019 4:59 Resu lts for this AM CDT procedure are i n the results section. FIBRINOGEN Routine 08/21/2019 4:59 Results for this AM CDT procedure are i n the results section. MAGNESIUM Routine 08/21/2019 4:59 Results for this AM CDT procedure are i n the results section. BASIC METABOLIC PANEL Routine 08/21/2019 4:59 Re sults for this (7) AM CDT procedure are i n the results section. ECHOCARDIOGRAM REPORT - 08/20/2019 9:10 SCAN PM CDT APTT Routine 08/20/2019 5:43 Results for this PM CDT procedure are i n the results section. (MANUAL DIFFERENTIAL) Routine 08/20/2019 2:25 Re sults for this PM CDT procedure are i n the results section. PERIPHERAL BLOOD SMEAR Add-On 08/20/2019 2:25 R esults for this - PATHOLOGIST REVIEW PM CDT procedu re are in the results section. CBC (HEMOGRAM ONLY) STAT 08/20/2019 2:25 Resu lts for this PM CDT procedure are i n the results section. ECHO W CONTRAST & Routine 08/20/2019 1:41 Result s for this DOPPLER PM CDT procedure are i n the results section. APTT Routine 08/20/2019 9:46 Results for this AM CDT procedure are i n the results section. APTT Routine 08/20/2019 1:19 Results for this AM CDT procedure are i n the results section. PHOSPHORUS Routine 08/20/2019 1:19 Results for this AM CDT procedure are i n the results section. MAGNESIUM Routine 08/20/2019 1:19 Results for this AM CDT procedure are i n the results section. CBC (HEMOGRAM ONLY) Routine 08/20/2019 1:19 Resu lts for this AM CDT procedure are i n the results section. BASIC METABOLIC PANEL Routine 08/20/2019 1:19 Re sults for this (7) AM CDT procedure are i n the results section. SARS-COV2/RT-PCR ([facility] Routine 08/19/2019 8:19 R esults for this & REF LABS) PM CDT procedure are i n the results section. APTT Routine 08/19/2019 6:46 Results for this PM CDT procedure are i n the results section. SCREEN, URINE STAT 08/19/2019 5:54 Results for this PM CDT procedure are i n the results section. APTT Routine 08/19/2019 4:18 Results for this PM CDT procedure are i n the results section. EFXB-2-WALPZXIXOTCJ I Routine 08/19/2019 9:35 Re sults for this IGA AM CDT procedure are i n the results section. AYIC-9-[id number] I Routine 08/19/2019 9:35 Re sults for this IGM AM CDT procedure are i n the results section. EEKG-7-JWLBEFQJBCTX I Routine 08/19/2019 9:35 Re sults for this IGG AM CDT procedure are i n the results section. COMPLEMENT COMPONENT C4 Routine 08/19/2019 9:35 Results for this AM CDT procedure are i n the results section. COMPLEMENT COMPONENT C3 Routine 08/19/2019 9:35 Results for this AM CDT procedure are i n the results section. RPR Routine 08/19/2019 9:35 Results for this AM CDT procedure are i n the results section. BETA-2 GLYCOPROTEIN Routine 08/19/2019 9:35 Resu lts for this ANTIBODIES AM CDT procedure are i n the results section. CARDIOLIPIN ANTIBODIES, Routine 08/19/2019 9:35 Results for this IGG AND IGM AM CDT procedure are i n the results section. PROTHROMBIN TIME/INR Add-On 08/19/2019 5:47 Res ults for this AM CDT procedure are i n the results section. APTT Routine 08/19/2019 5:47 Results for this AM CDT procedure are i n the results section. URINALYSIS MICROSCOPIC Routine 08/19/2019 3:39 R esults for this AM CDT procedure are i n the results section. CREATININE, RANDOM Routine 08/19/2019 3:39 Resul ts for this URINE AM CDT procedure are i n the results section. SODIUM, RANDOM URINE Routine 08/19/2019 3:39 Res ults for this AM CDT procedure are i n the results section. URINALYSIS WITH Routine 08/19/2019 3:39 Results for this MICROSCOPIC IF AM CDT procedure are in INDICATED the results section. LACTIC ACID, VENOUS Routine 08/19/2019 2:50 Resu lts for this AM CDT procedure are i n the results section. CBC W/PLT COUNT & AUTO Routine 08/19/2019 2:49 R esults for this DIFFERENTIAL AM CDT procedure are i n the results section. APTT Routine 08/19/2019 2:49 Results for this AM CDT procedure are i n the results section. CBC W/PLT COUNT & AUTO Routine 08/19/2019 2:49 R esults for this DIFFERENTIAL AM CDT procedure are i n the results section. BASIC METABOLIC PANEL Routine 08/19/2019 2:49 Re sults for this (7) AM CDT procedure are i n the results section. after 09/13/2018 Results CARDIAC CATH REPORT - SCAN (08/25/2019 3:03 PM CDT) Narrative Performed At This result has an attachment that is no t available. CARDIAC CATH REPORT - SCAN (08/25/2019 3:03 PM CDT) Narrative Performed At This result has an attachment that is no t available. aPTT (08/23/2019 6:22 AM CDT)Only the most recent of10 resultswithin the time period is included. PTT 104.7 (H) 22.5 - 36.0 seconds [facility] Specimen Blood Performing Organization Address City/[facility] Phone Number [address] [phone] CENTER CBC (Hemogram only) (08/23/2019 6:22 AM CDT)Only the most recent of5 results within the time period is included. WBC 6.4 3.5 - 10.5 K/L [facility] RBC 3.45 (L) 3.93 - 5.22 M/L [facility] Hemoglobin 8.2 (L) 11.2 - 15.7 GM/DL [facility] Hematocrit 27.3 (L) 34.1 - 44.9 % [facility] MCV 79.1 (L) 79.4 - 94.8 fL [facility] MCH 23.8 (L) 25.6 - 32.[address] [facility] MCHC 30.0 (L) 32.2 - 35.5 GM/DL [facility] RDW 19.9 (H) 11.7 - 14.4 % [facility] Platelets 148 (L) 150 - 450 K/CU MM [facility] MPV 11.8 9.4 - 12.3 fL [facility] nRBC 0 0 - 0 /100 WBC [facility] Specimen Blood Performing Organization Address City/State/Zipcode Phone Number [facility] [address] [place] [phone] [place] Magnesium (08/23/2019 6:22 AM CDT)Only the most recent of3 resultswithin the time period is included. Magnesium 2.1 1.6 - 2.6 mg/dL [facility] Specimen Blood Narrative Performed At Top Case Assembler ID - P[facility]EVA L [facility] Performing Organization Address City/[facility] Phone Number [facility] [address] [place] [phone] CENTER Basic Metabolic Panel (08/23/2019 6:22 AM CDT)Only the most recent of5 results within the time period is included. Sodium 139 136 - 145 meq/L [facility] Potassium 3.4 (L) 3.5 - 5.1 meq/L [facility] Chloride 107 98 - 107 meq/L [facility] CO2 25 22 - 29 meq/L [facility] BUN 9 7 - 21 mg/dL [facility] Creatinine 0.77 0.57 - 1.25 mg/dL [facility] Glucose 90 70 - 105 mg/dL [facility] Calcium 8.4 8.4 - 10.2 mg/dL [facility] EGFR 98Comment: ESTIMATED GFR IS mL/min/1.73 sq m [facility] NOT ACCURATE [facility] [place] CLEARANCE IN PREDICTING GLOMERULAR FILTRATION RATE. ESTIMATED GFR IS NOT APPLICABLE FOR DIALYSIS PATIENTS. Specimen Blood Narrative Performed At Top Case Assembler ID - PIGENEVA L [facility] Performing Organization Address City/[facility]/Zipcode Phone Number [facility] [address] [place] [phone] CENTER POC ACTIVATED CLOTTING TIME (08/22/2019 1:50 PM CDT)Only the most recent of2 resultswithin the time period is included. Activated Clotting Time 213Comment: : 74-137 sec [facility] seconds, Baseline: [facility]ED [facility] [address] [place] [address], [id number]: Top Case Assembler/Waste/Materials Exchange Specialist ID = [id number] for Augustin Ferraro Specimen Blood Performing Organization Address City/[facility]/Zipcode Phone Number [facility] [address], [place] [phone] CENTER TSH/Free T4 If Indicated (08/22/2019 4:55 AM CDT) TSH 2.356 0.350 - 4.940 uIU/mL [facility] Specimen Blood Narrative Performed At Top Case Assembler ID - REBECA Aguayo [facility] Performing Organization Address City/State/Zipcode Phone Number [facility] [address], [place] [phone] [place] CTA chest, abdomen & pelvis - for dissection (08/21/2019 2:09 PM CDT) Specimen Narrative Performed At Addendum [facility] REPORT STATUS:A No definitive renal calculi are identifi ed on this examination, although assessment is limited by the ad ministration of intravenous contrast and excretion of contrast withi n both collecting systems. A portion of transverse colon protrudes into a broad-based umbilical hernia. Otherwise, agree with nonvascular findin gs dictated in original report. Signed: Mark Anthony Tavares MD Report Verified Date/Time:08/25/2019 14:18:31 Reading Location: [facility] Reading Room - [place] [address] Addendum Ends FINAL REPORT CT angiography of the thoracoabdominal a lux and pelvic arteries, 21-Aug-19 INDICATION: This is a 44 years old femal e, with diagnosis of left popliteal artery thrombosis, presents fo r assessment, for evaluation for potential thromboembolic origins. TECHNIQUE: Spiral acquisition before and during intravenous contrast administration using a Annie multidete ctor CT scanner. Images were obtained before and during the dynamic p assage of intravenous contrast material.Multi-planar 3-D v olume-rendering reconstruction was performed using an independent works tation interactively by the interpreting physician as well as the 3- D specialist for optimal visualisation of the thoracoabdominal ao rta, the pelvic arteries as well as its proximal branches. Please refer to the contrast sheet scann ed in the EPIC system for the amount and route of contrast given. This exam was performed according to our departmental dose-optimisation programme, which inclu jerry automated exposure control, adjustment of the mA and/or kV according to patient size and/or use of iterative reconstruction t echnique. Dose modulation, iterative reconstruction, and/or weight based adjustment of the mA/kV was utilized to reduce the radiation dos e to as low as reasonably achievable. FINDINGS: VASCULAR:- The central pulmonary artery is normal i n calibre. The cardiac chambers demonstrate normal atrioventricular and ventriculoarterial concordance, and syst emic and pulmonary venous return. The left ventricle is normal in size. Mi ld left and right atrial prominence is noted. No mitral annular c alcification is seen. No aortic valve calcification is identified . Coronary artery origins are normal. No o bvious coronary artery calcification is seen. The thoraco-abdominal aorta is normal in course, contour, and calibre.No calcification is identifi ed in the entire thoracoabdominal aorta.No hanging at herosclerosis identified especially transverse arch. No left vent ricular thrombus is seen and no left atrial appendage thrombus is bryan ntified. There is no evidence of acute aortic pat hology, specifically, there is no dissection, intramural haematoma, or contained rupture. The arch vessel branching pattern is normal and the visualized arch vessels are widely patent proximally. Quantitative dimensions of the aorta are as follows: 3.1 cm at the sinuses of Valsalva (the sino-tubular ju nction is preserved); 2.6 cm at the proximal ascending thoracic aorta ; 3.0cm at the mid ascending aorta; 2.5cm at the distal ascending aorta; 2.4 cm at the mid transverse arch; 2.4 cm at the proxi mal descending aorta; 2.2 cm at the mid descending aorta; 1.9 cm at t he diaphragmatic hiatus. In the abdomen,the aorta measures 1.9 cm at the mesenteric segment; 1.6cm at the renal segment, ; and 1.5 cm at the aortic bifurcation. The common iliac, external iliac, common femoral, and the visualised superficial femoral arteries, bilaterall y, are widely patent with no obstructive lesion identified. Single left and right renal arteries are seen that are widely patent. The coeliac axis, SMA, GREGORY are widely pa tent. Some early enhancement of the venous sys tem is identified in the right pelvic veins, leading to negative contrast in the takeoff of the IVC at image 241. This study is NOT optimised in the assessment of venous structure. NON-VASCULAR: Hypodensities are identified in both thy roid lobes, with the maximum diameter measure 3.1 cm in the right thy roid lobe. Dedicated thyroid ultrasound scan is recommended for [facility] tissue characterisation. The chest wall and mediastinum appear no rmal. No significant adenopathy is identified. In the lung windows, no endobronchial le yvon is seen and no pleural effusion is identified. 1 mm tiny nodule is seen in the left lower lobe, adjacent to the left hemidiaphragm image 143, an incidental finding due to its small size, especiall y in the absence of significant past medical history. In the abdomen, the liver and spleen sandeep ears unremarkable. No abnormal enhancing structure is identifi ed. The liver is smooth. The gallbladder and pancreas appears elizabeth ssly normal. The adrenal glands are not enlarged. Renal pathology is seen. Some cortical s carring is identified in the medial aspect of the left kidney. Tiny n onobstructive renal stones are seen, for example in the left kidney at image 54, measures 2 mm in diameter, at image 57 measures 1 mm i n diameter and in the right kidney at image 64 measures 1 mm. No hyd ronephrosis or perirenal fluid collection is identified. Bowel is not well assessed by CT angiogr aphy as enteric contrast is not given. No obvious bowel dilation is seen. There is no significant retroperitoneal adenopathy.No free fluid or free air is identified. The bladder appears unremarkable. The ut erus is identified. The ovaries are seen, bilaterally. No acute bony pathology is seen. CONCLUSIONS: 1.The thoraco-abdominal aorta is nor mal in course, contour, and calibre. No ectasia or aneurysmal dilati on is seen. No calcification is identified. No hanging atherosclerosis is present. There is no evidence of acute aortic pathology, specifically, there is no dissection, intramural hematoma, or contained rupture. Quantitative dimension of the thoracoabd ominal aorta are as described above. 2.No imaging evidence of left ventri cular thrombus or left atrial thrombus is present. 3.Normal coronary artery origins. No calcification is seen. 4.No acute pulmonary pathology is id entified. No suspicious pulmonary nodule is seen. 5.Other findings as described above. Hypodensities are identified in both thy roid lobes, with the maximum diameter measure 3.1 cm in the right thy roid lobe. Dedicated thyroid ultrasound scan is recommended for [facility] tissue characterisation. 6.An addendum will be dictated regar ding the non-vascular findings by the [employer] Hand Radiologist. Signed: Rafael Rangel MD Report Verified Date/Time:08/21/2019 14:33:46 Reading Location: [place] [address] CT Reading Room Procedure Note Interface, External Ris In - 08/25/2019 2:20 PM CDT Addendum Begins REPORT STATUS:A No definitive renal calculi are identifi ed on this examination, although assessment is limited by the ad ministration of intravenous contrast and excretion of contrast withi n both collecting systems. A portion of transverse colon protrudes into a broad-based umbilical hernia. Otherwise, agree with nonvascular findin gs dictated in original report. Signed: Mark Anthony Tavares MD Report Verified Date/Time: 08/25/2019 1 4:18:31 Reading Location: [facility] Imagin g Reading Room - [place] [address] Addendum Ends FINAL REPORT CT angiography of the thoracoabdominal a lux and pelvic arteries, 21-Aug-19 INDICATION: This is a 44 years old femal e, with diagnosis of left popliteal artery thrombosis, presents fo r assessment, for evaluation for potential thromboembolic origins. TECHNIQUE: Spiral acquisition before and during intravenous contrast administration using a Annie multidete ctor CT scanner. Images were obtained before and during the dynamic p assage of intravenous contrast material. Multi-planar 3-D vol ume-rendering reconstruction was performed using an independent works tation interactively by the interpreting physician as well as the 3- D specialist for optimal visualisation of the thoracoabdominal ao rta, the pelvic arteries as well as its proximal branches. Please refer to the contrast sheet scann ed in the EPIC system for the amount and route of contrast given. This exam was performed according to our departmental dose-optimisation programme, which inclu jerry automated exposure control, adjustment of the mA and/or kV according to patient size and/or use of iterative reconstruction t echnique. Dose modulation, iterative reconstruction, and/or weight based adjustment of the mA/kV was utilized to reduce the radiation dos e to as low as reasonably achievable. FINDINGS: VASCULAR:- The central pulmonary artery is normal i n calibre. The cardiac chambers demonstrate normal atrioventricular and ventriculoarterial concordance, and syst emic and pulmonary venous return. The left ventricle is normal in size. Mi ld left and right atrial prominence is noted. No mitral annular c alcification is seen. No aortic valve calcification is identified . Coronary artery origins are normal. No o bvious coronary artery calcification is seen. The thoraco-abdominal aorta is normal in course, contour, and calibre. No calcification is identified in the entire thoracoabdominal aorta. No hanging athe rosclerosis identified especially transverse arch. No left vent ricular thrombus is seen and no left atrial appendage thrombus is bryan ntified. There is no evidence of acute aortic pat hology, specifically, there is no dissection, intramural haematoma, or contained rupture. The arch vessel branching pattern is normal and the visualized arch vessels are widely patent proximally. Quantitative dimensions of the aorta are as follows: 3.1 cm at the sinuses of Valsalva (the sino-tubular ju nction is preserved); 2.6 cm at the proximal ascending thoracic aorta ; 3.0 cm at the mid ascending aorta; 2.5 cm at the distal a scending aorta; 2.4 cm at the mid transverse arch; 2.4 cm at the proxi mal descending aorta; 2.2 cm at the mid descending aorta; 1.9 cm at t he diaphragmatic hiatus. In the abdomen, the aorta measures 1.9 cm at the mesenteric segment; 1.6 cm at the renal segment,; and 1.5 cm at the aortic bifurcation. The common iliac, external iliac, common femoral, and the visualised superficial femoral arteries, bilaterall y, are widely patent with no obstructive lesion identified. Single left and right renal arteries are seen that are widely patent. The coeliac axis, SMA, GREGORY are widely pa tent. Some early enhancement of the venous sys tem is identified in the right pelvic veins, leading to negative contrast in the takeoff of the IVC at image 241. This study is NOT optimised in the assessment of venous structure. NON-VASCULAR: Hypodensities are identified in both thy roid lobes, with the maximum diameter measure 3.1 cm in the right thy roid lobe. Dedicated thyroid ultrasound scan is recommended for [facility] tissue characterisation. The chest wall and mediastinum appear no rmal. No significant adenopathy is identified. In the lung windows, no endobronchial le yvon is seen and no pleural effusion is identified. 1 mm tiny nodule is seen in the left lower lobe, adjacent to the left hemidiaphragm image 143, an incidental finding due to its small size, especiall y in the absence of significant past medical history. In the abdomen, the liver and spleen sandeep ears unremarkable. No abnormal enhancing structure is identifi ed. The liver is smooth. The gallbladder and pancreas appears elizabeth ssly normal. The adrenal glands are not enlarged. Renal pathology is seen. Some cortical s carring is identified in the medial aspect of the left kidney. Tiny n onobstructive renal stones are seen, for example in the left kidney at image 54, measures 2 mm in diameter, at image 57 measures 1 mm i n diameter and in the right kidney at image 64 measures 1 mm. No hyd ronephrosis or perirenal fluid collection is identified. Bowel is not well assessed by CT angiogr aphy as enteric contrast is not given. No obvious bowel dilation is seen. There is no significant retroperitoneal adenopathy. No free fluid or free air is identified. The bladder appears unremarkable. The ut erus is identified. The ovaries are seen, bilaterally. No acute bony pathology is seen. CONCLUSIONS: 1. The thoraco-abdominal aorta is steven l in course, contour, and calibre. No ectasia or aneurysmal dilati on is seen. No calcification is identified. No hanging atherosclerosis is present. There is no evidence of acute aortic pathology, specifically, there is no dissection, intramural hematoma, or contained rupture. Quantitative dimension of the thoracoabd ominal aorta are as described above. 2. No imaging evidence of left ventricu lar thrombus or left atrial thrombus is present. 3. Normal coronary artery origins. No c alcification is seen. 4. No acute pulmonary pathology is iden tified. No suspicious pulmonary nodule is seen. 5. Other findings as described above. Hypodensities are identified in both thy roid lobes, with the maximum diameter measure 3.1 cm in the right thy roid lobe. Dedicated thyroid ultrasound scan is recommended for [facility] tissue characterisation. 6. An addendum will be dictated regardi ng the non-vascular findings by the [employer] Hand Radiologist. Signed: Rafael Rangel MD Report Verified Date/Time: 08/21/2019 1 4:33:46 Reading Location: [place] [address] [place] Reading Room Performing Organization Address City/State/Zipcode Phone Number GE RIS Fibrinogen (08/21/2019 4:59 AM CDT) Fibrinogen 245 225 - 434 mg/dl [facility] Specimen Blood Performing Organization Address City/State/Zipcode Phone Number [facility] [address] [place] [address] CENTER ECHOCARDIOGRAM REPORT - SCAN (08/20/2019 9:10 PM CDT) Narrative Performed At This result has an attachment that is no t available. Manual Differential (08/20/2019 2:25 PM CDT) % Neutros (manual) 65 % [facility] % Lymphs (manual) 29 % [facility] % Monos (manual) 2 % [facility] % Eos (manual) 2 % [facility] % Baso (manual) 0 % [facility] % Bands (manual) 1 0 - 10 % [facility] % Atypical Lymphs 1 (H) 0 - 0 % [facility] # Neutros (manual) 6.01 1.80 - 8.00 K/L [facility] # Lymphs (manual) 2.64 1.48 - 4.50 K/L [facility] # Monos (manual) 0.18 0.00 - 1.30 K/L [facility] # Eos (manual) 0.18 0.00 - 0.50 K/L [facility] # Baso (manual) 0.00 0.00 - 0.20 K/L [facility] # Bands (manual) 0.1 0.0 - 0.8 K/L [facility] # Atypical Lymphs 0.09 (H) 0.00 - 0.00 K/L [facility] Total Counted 101 [facility] Bands plus Segmented 6.10 [facility] Neutrophils [facility]ENTER Atypical Lymphs Present [facility] Smudge Cells Present [facility] Giant Platelet Present [facility] Anisocytosis 1+ few [facility] Elliptocytes 1+ few [facility] Ovalocytes 1+ few [facility] Polychromasia 1+ few [facility] Specimen Blood Performing Organization Address City/State/Zipcode Phone Number [address] [address] [place] Peripheral Blood Smear - Path Review (08/20/2019 2:25 PM CDT) Pathologist Review No circulating blasts. No [facility] significantly increased [facility] schistocytes. Pathologist: Michele Bridges, [facility] Liset(electronic signature) [facility] Specimen Blood Performing Organization Address City/[facility]/Zipcode Phone Number [address] [address] [place] ECHO W CONTRAST & DOPPLER (08/20/2019 1:41 PM CDT) Ejection Fraction [facility] Specimen Narrative Performed At Transthoracic Echocardiography Report (T TE) [facility] Demographics Patient NameTHOMAS, TASHONDA Date of Study08/20/2019 Gender Female Visit [id number] Race Black [id number] Number Date of 1975 ReferringMitjose martin pfeiffer Physician Age 44 year(s) SonographerMekco Sung s RDCS Interpreting Erica A. Tom, Physician ALECIA Stroud Procedure Type of Study TTE procedure:2DECHO W/CONTRAST & DOPPLER (Routine) Indications:Suspected cardiac source of emboli. Clinical History HGB 8.7 HCT 28.7 % NO PMH, CURRENT LLE DVT WITH ARTERIAL BL OOD CLOT Contrast Medium: Bubble Study. Height: 64 inches Weight: 78.02 kg (172 lbs) BSA: 1.83 m^2 BMI: 29.52 kg/m^2 HR: 63 bpm BP: 96/54 mmHg Summary 1. The left ventricle is chamber size (by vol index) is normal. All of the LV segments contract normally . LVEF is lower limits of normal (50-55%) . 2. Normal diastolic function. 3. The right ventricular chamber size and systolic function are within normal limits. 4. IV saline contrast injection was negative for a PFO (patent foramen ovale) at rest and post Valsalva . Estimated peak systolic PA pressure is cannot be determined due to inadequate TR velocity signal . Previous Study No prior studies available for comparis on. Signature Findings Left Ventricle The LV endocardium is adequately visualized. Th e left ventricle is chamber size (by vol index) is normal. No rmal LV wall thickness. Al l of the LV segments contract normally . LV EF by Lowery's method of disk assessmen t is lo wer limits of normal (50-55%) . No rmal diastolic function. Left AtriumLA size is mildly enlarged (35-41 ml/m2) . Right VentricleThe right ventricular chamber size and systolic fu nction are within normal limits. Right Atrium RA size is normal. Atrial SeptumIV saline contrast injection was negative for a PF O (p atent foramen ovale) at rest and post Va lsalva . Aortic Valve Normal AoV structure. Mitral Valve Mild MV leaflet thickening. Tr jack mitral regurgitation. Tricuspid ValveTV structure is normal. A trace of tricuspid regurgitation. Es timated peak systolic PA pressure is can not be de termined due to inadequate TR velocity s ignal . Pulmonic Valve Normal PV structure. Mi ld pulmonary regurgitation. IVC/SVC/PA/PV/PleuralThe estimated RA pressure by IVC dynamics 5-10mmHg . Chambers/Structures Left Atrium LA Volume: 71.86 ml LA Area: 22.25 cm^2 LA Vol. Index: 39 ml/m^2 Left Ventricle LVIDd: 4.14 cm LVEDV:111.24 ml LVIDs: 2.85 cm LV Septum Diastolic: 0.78 cm LV PW Diastolic: 0.72 cm LV FS: 31.2 % LVEDV Lowery's:136.36 ml LVESV Lowery's:65.95 ml LVEDVI: 75 ml/m^2 LVEF Lowery's: 51.6 % LVESVI: 36 ml/m^2 LVOT Diameter: 2.26 cm Right Ventricle TAPSE: 3.16 cm Doppler/Quantitative Measurements Mitral Valve MV Peak E-Wave: 0.72 m/s MV Peak A-Wave: 0.59 m/s E/A Ratio: 1.23 Peak Gradient: 2.0 6 mmHg Deceleration Time: 162.4 msec MV Joe. Peak: Aortic Valve Peak Velocity: 1.21 m/sMean Velocity: 0.83 m/s Peak Gradient: 5.84 mmHg Mean Gradient: 3.18 mmHg AV Area (continuity): 3.13 cm^2 AV VTI: 24.92 cm AV DVI: 0.78 LVOT Peak Velocity: 0.97 m/s Peak Gradient: 3.8 mmHg Mean Velocity: 0.65 m/s Mean Gradient: 1.93 mmHg LVOT Diameter: 2.26 cmLVOT VTI: 19.47 cm LVOT Area: 4.01 cm^2LVOT SV:78.06 ml LVOT CO: 4.92 l/min LVOT CI: 2.69 l/min/m^2 Tricuspid Valve TR Velocity: 1.93 m/s TR Gradient: 14.9 mmHg Procedure Note Interface, External Ris In - 08/20/2019 6:19 PM CDT Transthoracic Echocardiography Report (TTE) Demographics Patient Name JESUS NOE Date o f Study 08/20/2019 Gender Female Visit Number [id number] Race Black [address] [place] [address] Number Date of 1975 Referr lisandra boswell Age 44 year(s) Sonogr apher Livansiomara Cummins RDCS Interp reting Natalie Hogue MD Fellow ALECIA Fallon Procedure Type of Study TTE procedure:2DECHO W/CONTRA ST & DOPPLER (Routine) Indications:Suspected cardiac source of emboli. Clinical History HGB 8.7 HCT 28.7 % NO PMH, CURRENT LLE DVT WITH ARTERIAL BL OOD CLOT Contrast Medium: Bubble Study. Height: 64 inches Weight: 78.02 kg (172 lbs) BSA: 1.83 m^2 BMI: 29.52 kg/m^2 HR: 63 bpm BP: 96/54 mmHg Summary 1. The left ventricle is chamber size ( by vol index) is normal. All of the LV segments contract normall y . LVEF is lower limits of normal (50-55%) . 2. Normal diastolic function. 3. The right ventricular chamber size a nd systolic function are within normal limits. 4. IV saline contrast injection was neg ative for a PFO (patent foramen ovale) at rest and post Valsalva . Estimated peak systolic PA pressure is cannot be determined due to inadequate TR velocity signal . Previous Study No prior studies available for comparis on. Signature Findings Left Ventricle The LV endocardi um is adequately visualized. The left ventric le is chamber size (by vol index) is normal. Normal LV wall t hickness. All of the LV se gments contract normally . LVEF by Lowery' s method of disk assessment is lower limits of normal (50-55%) . Normal diastolic function. Left Atrium LA size is mildl y enlarged (35-41 ml/m2) . Right Ventricle The right ventri cular chamber size and systolic function are wit hin normal limits. Right Atrium RA size is steven l. Atrial Septum IV saline contra st injection was negative for a PFO (patent foramen ovale) at rest and post Valsalva . Aortic Valve Normal AoV struc ture. Mitral Valve Mild MV leaflet thickening. Trace mitral reg urgitation. Tricuspid Valve TV structure is normal. A trace of tricu spid regurgitation. Estimated peak s ystolic PA pressure is cannot be determined due t o inadequate TR velocity signal . Pulmonic Valve Normal PV struct ure. Mild pulmonary r egurgitation. IVC/SVC/PA/PV/Pleural The estimated RA pressure by IVC dynamics 5-10mmHg . Chambers/Structures Left Atrium LA Volume: 71.86 ml LA Area: 22.25 cm^2 LA Vol. Index: 39 ml/m^2 Left Ventricle LVIDd: 4.14 cm LVEDV:111.24 ml LVIDs: 2.85 cm LV Septum Diastolic: 0.78 cm LV PW Diastolic: 0.72 cm LV FS: 31.2 % LVEDV Lowery's:136.36 ml LVESV Lowery's:65.95 ml LVEDVI: 75 ml/m^2 LVEF Lowery's: 51.6 % LVESVI: 36 ml/m^2 LVOT Diameter: 2.26 cm Right Ventricle TAPSE: 3.16 cm Doppler/Quantitative Measurements Mitral Valve MV Peak E-Wave: 0.72 m/s MV P eak A-Wave: 0.59 m/s E/A Ratio: 1.23 Peak Gradient: 2.06 mmHg Dece leration Time: 162.4 msec MV Joe. Peak: Aortic Valve Peak Velocity: 1.21 m/s Mean Velocity: 0.83 m/s Peak Gradient: 5.84 mmHg Mean Gradient: 3.18 mmHg AV Area (continuity): 3.13 cm^2 AV VTI: 24.92 cm AV DVI: 0.78 LVOT Peak Velocity: 0.97 m/s Pea k Gradient: 3.8 mmHg Mean Velocity: 0.65 m/s Shu n Gradient: 1.93 mmHg LVOT Diameter: 2.26 cm LVO T VTI: 19.47 cm LVOT Area: 4.01 cm^2 LVO T SV:78.06 ml LVOT CO: 4.92 l/min LVO T CI: 2.69 l/min/m^2 Tricuspid Valve TR Velocity: 1.93 m/s TR Gradient: 14.9 mmHg Performing Organization Address City/State/Zipcode Phone Number [facility] Phosphorus (08/20/2019 1:19 AM CDT) Phosphorus 2.5 2.3 - 4.7 mg/dL [facility] Specimen Blood Narrative Performed At Top Case Assembler ID - MARIA A Do [facility] Performing Organization Address City/State/Zipcode Phone Number [facility] [address] [place] [address] CENTER SARS-CoV2/RT-PCR ([facility]) (08/19/2019 8:19 PM CDT) SARS-COV2/RT-PCR Not Detected Not Detected, Negative [facility] SARS-COV-2 [facility] Specimen Other Narrative Performed At Negative results do not preclude SARS-CoV-2 [facility] infection and should not be used as the sole basis for patient management decisions. Negative results must be combined with clinical observations, patient history, and epidemiological information. A false negative result may occur if a specimen is improperly collected, transported or handled. The limit of detection for this assay is 250 copies/mL. This SARS CoV-2 test is a rapid, real-time RT-PCR test intended for the qualitative detection of nucleic acid from SARS-CoV-2 in a nasopharyngeal swab specimen collected from individuals suspected of COVID-19 by their healthcare provider. This test has not been Food and Drug Administration (FDA) cleared or approved and has been authorized by FDA under an Emergency Use Authorization (EUA). This EUA will be effective until the declaration that circumstances exist justifying the authorization of the emergency use of in vitro diagnostic tests for detection and/or diagnosis of COVID-19 is terminated under Section 564(b)(2) of the Act or the EUA is revoked under Section 564(g) of the Act. Fact Sheet for Healthcare Providers: https://www.Trendlr/Documents/Xpert%20Xpre ss%20SARS%20CoV-2/Fact%20Sheets/3023802%20SAR S-COV-2%20HEALTHCARE%20PROVIDERS%20FACT%20SHEE T.pdf Fact Sheet for Healthcare Patients: https://www.Trendlr/Documents/Xpert%20Xpre ss%20SARS%20CoV-2/Fact%20Sheets/3023802%20SAR S-COV-2%20PATIENT%20FACT%20SHEET.pdf Performing Laboratory: [address] [place] [address] Performing Organization Address [facility]/[place] [address] [place] Screen, urine (08/19/2019 5:54 PM CDT) Preg Test, Ur Negative [facility] Specimen Urine Performing Organization Address [facility]/[place] [address] CENTER Fsep-5-Hiqhhuyswiwb I IgA (08/19/2019 9:35 AM CDT) Beta-2 Glycoprotein I <9 < OR = 20 [facility] Ab, IgA Comment: INCORPORATED The antiphospholipid antibody syndrome (APS) is a clinical-pathologic correlation that includes a clinical event (e.g. thrombosis, loss, thrombocytopenia) and persistent positive antiphospholipid antibodies (IgM or IgG ELISSA >40 MPL/GPL,IgM or IgG anti-b2GPI antibodies or a lupus anticoagulant). International consensus guidelines for APS suggest waiting at least 12 weeks before retesting to confirm antibody persistence. The Systemic Lupus International Collaborating [facility] immunological classification criteria for systemic lupus erythematosus (SLE) include testing for isotype IgA, which has yet to be incorporated into APS criteria. Low level antiphospholipid antibodies may sometimes be detected in the setting of infection, drug therapy or aging. Specimen Blood Narrative Performed At Performing Lab [facility] [place] [id number] [place] [address] Sampson Cruz MD, PhD, SRIKANTH Performing Organization Address [facility] Phone Number [place] [address] INCORPORATED [address] [employer] Zlzf-2-Ntbruodvdiuo I IgM (08/19/2019 9:35 AM CDT) Beta-2 Glycoprotein I Ab, IgM <9 < OR = 20 [facility]ATED Specimen Blood Narrative Performed At Performing Lab [facility] [place] [place] [address] [place] [address] Sampson Cruz MD, PhD, SRIKANTH Performing Organization Address [facility] Phone [place] [address] [place] [id number] [facility] Azud-3-Yudotinmoqvm I IgG (08/19/2019 9:35 AM CDT) Beta-2 Glycoprotein I Ab, IgG <9 < OR = 20 [facility] Specimen Blood Narrative Performed At Performing Lab [facility] [place] [address] [place] [address] Sampson Cruz MD, PhD, SRIKANTH Performing Organization Address [facility] Phone [place] [address] INC[employer]ATED [address] [employer] Beta-2 glycoprotein antibodies (08/19/2019 9:35 AM CDT) B2 Glcoprotein Ab Profile Refer to individual [facility] B2-Glycoprotein IgG, IgM INCORPO RATED and IgA results. Specimen Blood Performing Organization Address [facility] Phone Number [place] [address] [employer]ATED [address] [facility] RPR (08/19/2019 9:35 AM CDT) RPR Nonreactive Nonreactive [facility] Specimen Blood Performing Organization Address City/[facility] Phone Number [address] [address] CENTER Cardiolipin Antibodies, IgG and IgM (08/19/2019 9:35 AM CDT) Anticardiolipin IgG <1.6 <20.[address] [facility] Anticardiolipin IgM 0.7 <20.[address] [facility] Specimen Blood Narrative Performed At Anticardiolipin IgG Result Interpretatio n: [facility] <20.0 GPL Normal >/= 20.0 GPL Positive Anticardiolipin IgM Result Interpretatio n: <20.0 MPL Normal >/= 20.0 MPL Positive Performing Organization Address City/[facility] Phone Number [address] [address] CENTER Complement Component C3 (08/19/2019 9:35 AM CDT) C3 Complement 160 82 - 193 mg/dL [facility] Specimen Blood Narrative Performed At Top Case Assembler ID - NTP [facility] Performing Organization Address City/[facility] Phone Number [address] [address] CENTER Complement Component C4 (08/19/2019 9:35 AM CDT) C4 Complement 29 15 - 57 mg/dL [facility] Specimen Blood Narrative Performed At Top Case Assembler ID - NTP [facility] Performing Organization Address [facility] Phone Number [address] [address] CENTER Prothrombin time/INR (08/19/2019 5:47 AM CDT) Protime 16.7 (H) 11.9 - 14.[address] [facility] INR 1.4 <=5.9 [facility] Specimen Blood Narrative Performed At Effective 09/11/2018: PT Reference Range [facility] Change New: 11.9-14.2Previous: 11.7-14.7 RECOMMENDED COUMADIN/WARFARIN INR THERAPY RANGES STANDARD DOSE: 2.0-3.0Includes: PROPHYLAXIS for venous thrombosis, systemic embolization; TREATMENT for venous thrombosis and/or pulmonary embolus. HIGH RISK: Target INR is 2.5-3.5 for patients wiht mechanical heart valves. 6 hours after starting heparin infusion and as indicated per sliding scale Performing Organization Address City/State/Zipcode Phone Number [address] [address] CENTER Urinalysis Microscopic Only (08/19/2019 3:39 AM CDT) RBC, UA >180 /HPF [facility] WBC, UA 3 /HPF [facility] Squam Epithel, UA 2 /HPF [facility] Specimen Urine Narrative Performed At Top Case Assembler ID - tech [facility] Performing Organization Address City/State/Zipcode Phone Number [address] [address] CENTER Urinalysis with Microscopic If Indicated (08/19/2019 3:39 AM CDT) Color, UA Yellow [facility] Clarity, UA Clear [facility] Specific [place], UA >1.050 (H) 1.001 - 1.035 [facility] pH, UA 6.5 5.0 - 8.0 [facility] Protein, UA 100 mg/dL (A) Negative [facility] Glucose, UA Negative Negative [facility] Ketones, UA 40 mg/dL (A) Negative [facility] Bilirubin, UA Negative Negative [facility] Blood, UA Large (A) Negative [facility] Nitrite, UA Negative Negative [facility] Leukocytes, UA Negative Negative [facility] Urobilinogen, UA 0.2 0.2 - 1.0 mg/dL [facility] Specimen Source [facility] Specimen Urine Narrative Performed At Top Case Assembler ID - [auto] [facility] Top Case Assembler ID - tech Performing Organization Address [facility] Phone Number [address] [address] [place] Sodium, random urine (08/19/2019 3:39 AM CDT) Sodium Urine <20 meq/L [facility] Specimen Urine Narrative Performed At Reference Range: No Normals [facility] Top Case Assembler ID - REBECA L Performing Organization Address [facility]/Zipcode Phone Number [address] [address] [place] Creatinine, random urine (08/19/2019 3:39 AM CDT) Creatinine, Ur 135.0 mg/dL [facility] Specimen Urine Narrative Performed At Reference Range: No Normals [facility] Top Case Assembler ID - REBECA L Performing Organization Address [facility]/Zipcode Phone Number [address] [address] CENTER Lactic acid, venous (08/19/2019 2:50 AM CDT) Lactate, Venous 1.66 0.50 - 2.20 mmol/L [facility] Specimen Blood Narrative Performed At Top Case Assembler ID - REBECA Aguayo [facility] Performing Organization Address City/State/Zipcode Phone Number [facility] [address] [place] [address] CENTER CBC with platelet count + automated diff (08/19/2019 2:49 AM CDT) WBC 17.8 (H) 3.5 - 10.5 K/L [facility] RBC 4.95 3.93 - 5.22 M/L [facility] Hemoglobin 11.5 11.2 - 15.7 GM/DL [facility] Hematocrit 38.7 34.1 - 44.9 % [facility] MCV 78.2 (L) 79.4 - 94.8 fL [facility] MCH 23.2 (L) 25.6 - 32.2 pg [facility] MCHC 29.7 (L) 32.2 - 35.5 GM/DL [facility] RDW 20.7 (H) 11.7 - 14.4 % [facility] Platelets 150 150 - 450 K/CU MM [facility] MPV 10.1 9.4 - 12.3 fL [facility] nRBC 0 0 - 0 /100 WBC [facility] % Neutros 89 % [facility] % Lymphs 7 % [facility] % Monos 3 % [facility] % Eos 0 % [facility] % Baso 0 % [facility] # Neutros 15.82 (H) 1.56 - 6.13 K/L [facility] # Lymphs 1.27 1.18 - 3.74 K/L [facility] # Monos 0.58 (H) 0.24 - 0.36 K/L [facility] # Eos 0.00 (L) 0.04 - 0.36 K/L [facility] # Baso 0.02 0.01 - 0.08 K/L [facility] Immature 1 0 - 1 % [facility] Granulocytes-Relative [facility] Specimen Blood Performing Organization Address City/State/Zipcode Phone Number [facility] [address] [place] [address] CENTER after 09/13/2018 Insurance Payer Benefit Plan / Subscriber ID Type Phone Address Group MEDICAID - MEDICAID COMM xxxxxxxxx Medicaid MEDICAID [facility] [facility] CHO[facility] Contracted [facility] xxxxxxxx [address] [place] [address] Advance Directives For more information, please contact:[address] [phone] Code Status Date Activated Date Inactivated Comments Full Code 08/19/2019 2:19 AM 08/23/2019 4:37 PM This code status was determined by: Patient
--- OUTSIDE RECORDS SUMMARY | 2019-09-14 17:55 | XMS REPORT ---
:1975 Author Organization [facility] t Address [address] [place] [address] Care Team Providers Name Role Phone RUBIN Attending Clinician Unavailable Singer VALLES Attending Clinician DREA CLEARY Admitting Clinician Unavailable Problems This patient has no known problems. Allergies, Adverse Reactions, Alerts This patient has no known allergies or adverse reactions. Medications This patient has no known medications. Procedures This patient has no known procedures. Encounters Start End Encounter Admission Attending Care Care Encounter Source Date/Time Date/Time Type Type Clinicians Facility Department ID 2019-06-16 2019-06-16 Emergency ZULY Rodriguez [id number] 16:00:07 19:08:00 Landen Caballero [id number] [place] [id number] [place] [id number] Results Test Description Test Time Test Comments Results Result [facility] e Comments CTA, CHEST, 2019-08-25 Anesthesia:->N Addendum BeginsREPORT ABDOMEN - PELVIS, 14:18:00 one STATUS:A PATIENT ID: FOR DISSECTION [id number] No definitive renal calculi are identified on this examination, although assessment is limited by the administration of intravenous contrast and excretion of contrast within both collecting systems. A portion of transverse colon protrudes into a broad-based umbilical hernia. Otherwise, agree with nonvascular findings dictated in original report. Signed: Mark Anthony Tavares MDReport Verified Date/Time: 08/25/2019 14:18:31 Reading Location: [facility] Diagnostic Imaging Reading Room - [place] [id number] angiography of the thoracoabdominal aorta and pelvic arteries, 21-Aug-19 INDICATION: This is a 44 years old female, with diagnosis of left popliteal artery thrombosis, presents for assessment, for evaluation for potential thromboembolic origins. TECHNIQUE: Spiral acquisition before and during intravenous contrast administration using a Annie multidetector CT scanner. Images were obtained before and during the dynamic passage of intravenous contrast material. Multi-planar 3-D volume-rendering reconstruction was performed using an independent workstation interactively by the interpreting physician as well as the 3-D specialist for optimal visualisation of the thoracoabdominal aorta, the pelvic arteries as well as its proximal branches. Please refer to the contrast sheet scanned in the EPIC system for the amount and route of contrast given. This exam was performed according to our departmental dose-optimisation programme, which includes automated exposure control, adjustment of the mA and/or kV according to patient size and/or use of iterative reconstruction technique. Dose modulation, iterative reconstruction, and/or weight based adjustment of the mA/kV was utilized to reduce the radiation dose to as low as reasonably achievable. FINDINGS: VASCULAR:- The central pulmonary artery is normal in calibre. The cardiac chambers demonstrate normal atrioventricular and ventriculoarterial concordance, and systemic and pulmonary venous return. The left ventricle is normal in size. Mild left and right atrial prominence is noted. No mitral annular calcification is seen. No aortic valve calcification is identified. Coronary artery origins are normal. No obvious coronary artery calcification is seen. The thoraco-abdominal aorta is normal in course, contour, and calibre. No calcification is identified in the entire thoracoabdominal aorta. No hanging atherosclerosis identified especially transverse arch. No left ventricular thrombus is seen and no left atrial appendage thrombus is identified. There is no evidence of acute aortic pathology, specifically, there is no dissection, intramural haematoma, or contained rupture. The arch vessel branching pattern is normal and the visualized arch vessels are widely patent proximally. Quantitative dimensions of the aorta are as follows: 3.1 cm at the sinuses of Valsalva (the sino-tubular junction is preserved); 2.6 cm at the proximal ascending thoracic aorta; 3.0 cm at the mid ascending aorta; 2.5 cm at the distal ascending aorta; 2.4 cm at the mid transverse arch; 2.4 cm at the proximal descending aorta; 2.2 cm at the mid descending aorta; 1.9 cm at the diaphragmatic hiatus. In the abdomen, the aorta measures 1.9 cm at the mesenteric segment; 1.6 cm at the renal segment,; and 1.5 cm at the aortic bifurcation. The common iliac, external iliac, common femoral, and the visualised superficial femoral arteries, bilaterally, are widely patent with no obstructive lesion identified. Single left and right renal arteries are seen that are widely patent. The coeliac axis, SMA, GREGORY are widely patent. Some early enhancement of the venous system is identified in the right pelvic veins, leading to negative contrast in the takeoff of the IVC at image 241. This study is NOT optimised in the assessment of venous structure. NON-VASCULAR: Hypodensities are identified in both thyroid lobes, with the maximum diameter measure 3.1 cm in the right thyroid lobe. Dedicated thyroid ultrasound scan is recommended for further tissue characterisation. The chest wall and mediastinum appear normal. No significant adenopathy is identified. In the lung windows, no endobronchial lesion is seen and no pleural effusion is identified. 1 mm tiny nodule is seen in the left lower lobe, adjacent to the left hemidiaphragm image 143, an incidental finding due to its small size, especially in the absence of significant past medical history. In the abdomen, the liver and spleen appears unremarkable. No abnormal enhancing structure is identified. The liver is smooth. The gallbladder and pancreas appears grossly normal. The adrenal glands are not enlarged. Renal pathology is seen. Some cortical scarring is identified in the medial aspect of the left kidney. Tiny nonobstructive renal stones are seen, for example in the left kidney at image 54, measures 2 mm in diameter, at image 57 measures 1 mm in diameter and in the right kidney at image 64 measures 1 mm. No hydronephrosis or perirenal fluid collection is identified. Bowel is not well assessed by CT angiography as enteric contrast is not given. No obvious bowel dilation is seen. There is no significant retroperitoneal adenopathy. No free fluid or free air is identified. The bladder appears unremarkable. The uterus is identified. The ovaries are seen, bilaterally. No acute bony pathology is seen. CONCLUSIONS: 1. The thoraco-abdominal aorta is normal in course, contour, and calibre. No ectasia or aneurysmal dilation is seen. No calcification is identified. No hanging atherosclerosis is present. There is no evidence of acute aortic pathology, specifically, there is no dissection, intramural hematoma, or contained rupture. Quantitative dimension of the thoracoabdominal aorta are as described above. 2. No imaging evidence of left ventricular thrombus or left atrial thrombus is present. 3. Normal coronary artery origins. No calcification is seen. 4. No acute pulmonary pathology is identified. No suspicious pulmonary nodule is seen. 5. Other findings as described above. Hypodensities are identified in both thyroid lobes, with the maximum diameter measure 3.1 cm in the right thyroid lobe. Dedicated thyroid ultrasound scan is recommended for further tissue characterisation. 6. An addendum will be dictated regarding the non-vascular findings by the Burn Out Scarfing Operator Radiologist. Signed: Rafael Rangeleport Verified Date/Time: 08/21/2019 14:33:46 Reading Location: [place] [address] [address] Reading Room ESIUM 2019-08-23 07:44:00 Test Item Value Reference Range Interpretation Comme nts MAGNESIUM (BEAKER) (test code = 627) 2.1 mg/dL 1.6-2.6 [facility] [employer] ID - REBECA LBASIC METABOLIC [id number] 07:44:00 Test Item Value Reference Range Interpretation Comments SODIUM (BEAKER) 139 meq/L 136-145 (test code = 381) POTASSIUM (BEAKER) 3.4 meq/L 3.5-5.1 L (test code = 379) CHLORIDE (BEAKER) 107 meq/L 98-107 (test code = 382) CO2 (BEAKER) (test 25 meq/L 22-29 code = 355) BLOOD UREA NITROGEN 9 mg/dL 7-21 (BEAKER) (test code = 354) CREATININE (BEAKER) 0.77 mg/dL 0.57-1.25 (test code = 358) GLUCOSE RANDOM 90 mg/dL 70-105 (BEAKER) (test code = 652) CALCIUM (BEAKER) 8.4 mg/dL 8.4-10.2 (test code = 697) EGFR (BEAKER) (test 98 mL/min/1.73 ESTIMA BREANNA GFR IS code = 1092) sq m NOT ACCURATE CREATININE CLEARANCE IN PREDICTING GLOMERULAR FILTRATION RATE . ESTIMATED GFR I S NOT APPLICABLE FOR DIALYSIS PATIEN TS. [facility] [employer] ID - REBECA [id number] 07:00:00 Test Item Value Reference Range Interpretation Comments PARTIAL THROMBOPLASTIN TIME 104.7 seconds 22.5-36.0 H (BEAKER) (test code = 760) CBC (HEMOGRAM ONLY)2019-08-23 06:47:00 Test Item Value Reference Range Interpretation Comments WHITE BLOOD CELL COUNT (BEAKER) 6.4 K/ L 3.5-10.5 (test code = 775) RED BLOOD CELL COUNT (BEAKER) 3.45 M/ L 3.93-5.22 L (test code = 761) HEMOGLOBIN (BEAKER) (test code = 8.2 GM/DL 11.2-15.7 L 410) HEMATOCRIT (BEAKER) (test code = 27.3 % 34.1-44.9 L 411) MEAN CORPUSCULAR VOLUME (BEAKER) 79.1 fL 79.4-94.8 L (test code = 753) MEAN CORPUSCULAR HEMOGLOBIN 23.8 pg 25.6-32.2 L (BEAKER) (test code = 751) MEAN CORPUSCULAR HEMOGLOBIN CONC 30.0 GM/DL 32.2-35.5 L (BEAKER) (test code = 752) RED CELL DISTRIBUTION WIDTH 19.9 % 11.7-14.4 H (BEAKER) (test code = 412) PLATELET COUNT (BEAKER) (test 148 K/CU MM 150-450 L code = 756) MEAN PLATELET VOLUME (BEAKER) 11.8 fL 9.4-12.3 (test code = 754) NUCLEATED RED BLOOD CELLS 0 /100 WBC 0-0 (BEAKER) (test code = 413) [id number] 14:09:00 Test Item Value Reference Range Interpretation Comments ACTIVATED CLOTTING TIME 213 sec : 74 -137 seconds, (BEAKER) (test code = Baseli ne: TESTED AT 441) [address], [facility] 30: Underground [employer]ter/Techni erum ID = [id number] for Augustin Brown [id number] 13:51:00 Test Item Value Reference Range Interpretation Comments ACTIVATED CLOTTING TIME 208 sec : 74 -137 seconds, (BEAKER) (test code = Baseli ne: TESTED AT 441) [address], [facility] 30: [facility] [employer]/Techni erum ID = [id number] for Augustin Brown [id number] 07:04:00 Test Item Value Reference Range Interpretation Comments PARTIAL THROMBOPLASTIN TIME 79.5 seconds 22.5-36.0 H (BEAKER) (test code = 760) TSH/FREE T4 IF [id number] 05:55:00 Test Item Value Reference Range Interpretation Comments THYROID STIMULATING HORMONE 2.356 uIU/mL 0.350-4.940 (BEAKER) (test code = 772) [employer] ID - PIAYA LBASIC METABOLIC [id number] 05:42:00 Test Item Value Reference Range Interpretation Comments SODIUM (BEAKER) 137 meq/L 136-145 (test code = 381) POTASSIUM (BEAKER) 3.3 meq/L 3.5-5.1 L (test code = 379) CHLORIDE (BEAKER) 105 meq/L 98-107 (test code = 382) CO2 (BEAKER) (test 21 meq/L 22-29 L code = 355) BLOOD UREA NITROGEN 9 mg/dL 7-21 (BEAKER) (test code = 354) CREATININE (BEAKER) 0.98 mg/dL 0.57-1.25 (test code = 358) GLUCOSE RANDOM 110 mg/dL 70-105 H (BEAKER) (test code = 652) CALCIUM (BEAKER) 9.3 mg/dL 8.4-10.2 (test code = 697) EGFR (BEAKER) (test 74 mL/min/1.73 ESTIMA BREANNA GFR IS code = 1092) sq m NOT ACCURATE CREATININE CLEARANCE IN PREDICTING GLOMERULAR FILTRATION RATE . ESTIMATED GFR I S NOT APPLICABLE FOR DIALYSIS PATIEN TS. [facility] [employer] ID - PIAYA LCBC (HEMOGRAM ONLY)2019-08-22 05:18:00 Test Item Value Reference Range Interpretation Comments WHITE BLOOD CELL COUNT 9.7 K/ L 3.5-10.5 (BEAKER) (test code = 775) RED BLOOD CELL COUNT 4.20 M/ L 3.93-5.22 (BEAKER) (test code = 761) HEMOGLOBIN (BEAKER) 9.4 GM/DL 11.2-15.7 L (test code = 410) HEMATOCRIT (BEAKER) 32.4 % 34.1-44.9 L (test code = 411) MEAN CORPUSCULAR 77.1 fL 79.4-94.8 L VOLUME (BEAKER) (test code = 753) MEAN CORPUSCULAR 22.4 pg 25.6-32.2 L HEMOGLOBIN (BEAKER) (test code = 751) MEAN CORPUSCULAR 29.0 GM/DL 32.2-35.5 L HEMOGLOBIN CONC (BEAKER) (test code = 752) RED CELL DISTRIBUTION 20.1 % 11.7-14.4 H WIDTH (BEAKER) (test code = 412) PLATELET COUNT 180 K/CU MM 150-[address] T (BEAKER) (test code = result compared to 756) previous result ; clinical correl ation required. MEAN PLATELET VOLUME 12.1 fL 9.4-12.3 (BEAKER) (test code = 754) NUCLEATED RED BLOOD 0 /100 WBC 0-0 CELLS (BEAKER) (test code = 413) PERIPHERAL BLOOD SMEAR - PATHOLOGIST [id number] 10:55:00 Test Item Value Reference Range Interpretation Comments PERIPHERAL SMR REVIEW No circulating blasts. (BEAKER) (test code = No significantly 3580) increased schistocytes. [id number] Michele Bridges, (BEAKER) (test code = M.D.(electronic 2087) signature) [id number] 05:36:00 Test Item Value Reference Range Interpretation Comments PARTIAL THROMBOPLASTIN TIME 88.2 seconds 22.5-36.0 H (BEAKER) (test code = 760) [id number] 05:36:00 Test Item Value Reference Range Interpretation Comments MAGNESIUM (BEAKER) (test code = 2.0 mg/dL 1.6-2.6 627) [facility] [employer] ID - YANET WBASIC METABOLIC [id number] 05:36:00 Test Item Value Reference Range Interpretation Comments SODIUM (BEAKER) 140 meq/L 136-145 (test code = 381) POTASSIUM (BEAKER) 3.5 meq/L 3.5-5.1 (test code = 379) CHLORIDE (BEAKER) 109 meq/L 98-107 H (test code = 382) CO2 (BEAKER) (test 27 meq/L 22-29 code = 355) BLOOD UREA NITROGEN 13 mg/dL 7-21 (BEAKER) (test code = 354) CREATININE (BEAKER) 0.81 mg/dL 0.57-1.25 (test code = 358) GLUCOSE RANDOM 86 mg/dL 70-105 (BEAKER) (test code = 652) CALCIUM (BEAKER) 8.3 mg/dL 8.4-10.2 L (test code = 697) EGFR (BEAKER) (test 92 mL/min/1.73 ESTIMA BREANNA GFR IS code = 1092) sq m NOT ACCURATE CREATININE CLEARANCE IN PREDICTING GLOMERULAR FILTRATION RATE . ESTIMATED GFR I S NOT APPLICABLE FOR DIALYSIS PATIEN TSYanci [facility] [employer] ID - YANET [id number] 05:35:00 Test Item Value Reference Range Interpretation Comments FIBRINOGEN LEVEL (BEAKER) (test 245 mg/dl 225-434 code = 658) CBC (HEMOGRAM ONLY)2019-08-21 05:33:00 Test Item Value Reference Range Interpretation Comments WHITE BLOOD CELL COUNT (BEAKER) 7.8 K/ L 3.5-10.5 (test code = 775) RED BLOOD CELL COUNT (BEAKER) 3.50 M/ L 3.93-5.22 L (test code = 761) HEMOGLOBIN (BEAKER) (test code = 8.1 GM/DL 11.2-15.7 L 410) HEMATOCRIT (BEAKER) (test code = 27.5 % 34.1-44.9 L 411) MEAN CORPUSCULAR VOLUME (BEAKER) 78.6 fL 79.4-94.8 L (test code = 753) MEAN CORPUSCULAR HEMOGLOBIN 23.1 pg 25.6-32.2 L (BEAKER) (test code = 751) MEAN CORPUSCULAR HEMOGLOBIN CONC 29.5 GM/DL 32.2-35.5 L (BEAKER) (test code = 752) RED CELL DISTRIBUTION WIDTH 20.3 % 11.7-14.4 H (BEAKER) (test code = 412) PLATELET COUNT (BEAKER) (test 119 K/CU MM 150-450 L code = 756) MEAN PLATELET VOLUME (BEAKER) 11.4 fL 9.4-12.3 (test code = 754) NUCLEATED RED BLOOD CELLS 0 /100 WBC 0-0 (BEAKER) (test code = 413) (MANUAL DIFFERENTIAL)2019-08-20 18:04:00 Test Item Value Reference Range Interpretation Comments NEUTROPHILS - REL (DIFF) (BEAKER) 65 % (test code = 1359) LYMPHOCYTES - REL (DIFF) (BEAKER) 29 % (test code = 1360) MONOCYTES - REL (DIFF) (BEAKER) 2 % (test code = 1361) EOSINOPHILS - REL (DIFF) (BEAKER) 2 % (test code = 1362) BASOPHILS - REL (DIFF) (BEAKER) 0 % (test code = 1363) BANDS - REL (DIFF) (BEAKER) (test 1 % 0-10 code = 1348) ATYPICAL LYMPHOCYTE - REL (DIFF) 1 % 0-0 H (BEAKER) (test code = 260) NEUTROPHILS - ABS (DIFF) (BEAKER) 6.01 K/ L 1.80-8.00 (test code = 1365) LYMPHOCYTES - ABS (DIFF) (BEAKER) 2.64 K/ L 1.48-4.50 (test code = 1366) MONOCYTES - ABS (DIFF) (BEAKER) 0.18 K/ L 0.00-1.30 (test code = 1367) EOSINOPHILS - ABS (DIFF) (BEAKER) 0.18 K/ L 0.00-0.50 (test code = 1368) BASOPHILS - ABS (DIFF) (BEAKER) 0.00 K/ L 0.00-0.20 (test code = 1369) BANDS-ABS (DIFF) (BEAKER) (test 0.1 K/ L 0.0-0.8 code = 1349) ATYPICAL LYMPHOCYTES - ABS (DIFF) 0.09 K/ L 0.00-0.00 H (BEAKER) (test code = 263) TOTAL COUNTED (BEAKER) (test code = 101 1351) BANDS + SEGMENTED NEUTROPHILS 6.10 (BEAKER) (test code = 1352) ATYPICAL LYMPHS(BEAKER) (test code Present = 1678) SMUDGE CELLS (BEAKER) (test code = Present 1371) GIANT PLATELETS (BEAKER) (test code Present = 313) ANISOCYTOSIS (BEAKER) (test code = 1+ few 961) ELLIPTOCYTES (BEAKER) (test code = 1+ few 962) OVALOCYTES (BEAKER) (test code = 1+ few 477) POLYCHROMATOPHILLIC RBCS(BEAKER) 1+ few (test code = 478) [id number] 17:59:00 Test Item Value Reference Range Interpretation Comments PARTIAL THROMBOPLASTIN TIME 81.4 seconds 22.5-36.0 H (BEAKER) (test code = 760) CBC (HEMOGRAM ONLY)2019-08-20 14:40:00 Test Item Value Reference Range Interpretation Comments WHITE BLOOD CELL COUNT 9.2 K/ L 3.5-10.5 (BEAKER) (test code = 775) RED BLOOD CELL COUNT 3.75 M/ L 3.93-5.22 L (BEAKER) (test code = 761) HEMOGLOBIN (BEAKER) 8.5 GM/DL 11.2-15.7 L (test code = 410) HEMATOCRIT (BEAKER) 28.9 % 34.1-44.9 L (test code = 411) MEAN CORPUSCULAR 77.1 fL 79.4-94.8 L VOLUME (BEAKER) (test code = 753) MEAN CORPUSCULAR 22.7 pg 25.6-32.2 L HEMOGLOBIN (BEAKER) (test code = 751) MEAN CORPUSCULAR 29.4 GM/DL 32.2-35.5 L HEMOGLOBIN CONC (BEAKER) (test code = 752) RED CELL DISTRIBUTION 20.3 % 11.7-14.4 H WIDTH (BEAKER) (test code = 412) PLATELET COUNT 123 K/CU MM 150-450 L (BEAKER) (test code = 756) MEAN PLATELET VOLUME Unable to report due (BEAKER) (test code = to abn ormal Platelet 754) population distribution. NUCLEATED RED BLOOD 0 /100 WBC 0-0 CELLS (BEAKER) (test code = 413) [id number] 10:03:00 Test Item Value Reference Range Interpretation Comments PARTIAL THROMBOPLASTIN TIME 84.6 seconds 22.5-36.0 H (BEAKER) (test code = 760) [id number] 02:26:00 Test Item Value Reference Range Interpretation Comments PARTIAL THROMBOPLASTIN TIME 104.6 seconds 22.5-36.0 H (BEAKER) (test code = 760) [id number] 01:54:00 Test Item Value Reference Range Interpretation Comments PHOSPHORUS (BEAKER) (test code = 2.5 mg/dL 2.3-4.7 604) [facility] [employer] [facility] ID - MARIA A [id number] 01:54:00 Test Item Value Reference Range Interpretation Comments MAGNESIUM (BEAKER) (test code = 2.1 mg/dL 1.6-2.6 627) [facility] [employer] GEETHA SAHA MBASIC METABOLIC [id number] 01:54:00 Test Item Value Reference Range Interpretation Comments SODIUM (BEAKER) 139 meq/L 136-145 (test code = 381) POTASSIUM (BEAKER) 3.2 meq/L 3.5-5.1 L (test code = 379) CHLORIDE (BEAKER) 108 meq/L 98-107 H (test code = 382) CO2 (BEAKER) (test 25 meq/L 22-29 code = 355) BLOOD UREA NITROGEN 18 mg/dL 7-21 (BEAKER) (test code = 354) CREATININE (BEAKER) 0.88 mg/dL 0.57-1.25 (test code = 358) GLUCOSE RANDOM 96 mg/dL 70-105 (BEAKER) (test code = 652) CALCIUM (BEAKER) 8.2 mg/dL 8.4-10.2 L (test code = 697) EGFR (BEAKER) (test 84 mL/min/1.73 ESTIMA BREANNA GFR IS code = 1092) sq m NOT ACCURATE CREATININE CLEARANCE IN PREDICTING GLOMERULAR FILTRATION RATE . ESTIMATED GFR I S NOT APPLICABLE FOR DIALYSIS PATIEN TS. [facility] [employer] GEETHA SAHA MCBC (HEMOGRAM ONLY)2019-08-20 01:36:00 Test Item Value Reference Range Interpretation Comments WHITE BLOOD CELL COUNT (BEAKER) 11.3 K/ L 3.5-10.5 H (test code = 775) RED BLOOD CELL COUNT (BEAKER) 3.70 M/ L 3.93-5.22 L (test code = 761) HEMOGLOBIN (BEAKER) (test code = 8.7 GM/DL 11.2-15.7 L 410) HEMATOCRIT (BEAKER) (test code = 28.7 % 34.1-44.9 L 411) MEAN CORPUSCULAR VOLUME (BEAKER) 77.6 fL 79.4-94.8 L (test code = 753) MEAN CORPUSCULAR HEMOGLOBIN 23.5 pg 25.6-32.2 L (BEAKER) (test code = 751) MEAN CORPUSCULAR HEMOGLOBIN CONC 30.3 GM/DL 32.2-35.5 L (BEAKER) (test code = 752) RED CELL DISTRIBUTION WIDTH 20.2 % 11.7-14.4 H (BEAKER) (test code = 412) PLATELET COUNT (BEAKER) (test 130 K/CU MM 150-450 L code = 756) MEAN PLATELET VOLUME (BEAKER) 10.6 fL 9.4-12.3 (test code = 754) NUCLEATED RED BLOOD CELLS 0 /100 WBC 0-0 (BEAKER) (test code = 413) SARS-COV2/RT-PCR ([facility])2019-08-19 21:34:00 Test Item Value Reference Range Interpretation Comments SARS-COV2/RT-PCR (test Not Detected Not Detected, Negative code = 8183856) SARS-COV-2 PERFORMING LAB [facility] (test code = 5426481) Negative results do not preclude SARS-CoV-2 infection and should not be used as the sole basis for patient management decisions. Negative results must be combined with clinical observations, patient history, and epidemiological information. A false negative result may occur if a specimen is improperly collected, transported or handled.The limit of detection for this assay is 250 copies/mL.This SARS CoV-2 test is a rapid, real-time RT-PCR test intended for the qualitative detection of nucleic acid from SARS-CoV-2 in a nasopharyngeal swab specimen collected from individuals suspected of COVID-19 by their healthcare provider.This test has not been Food and Drug [...] is revoked under Section 564(g) of the Act.Fact Sheet for Healthcare Pro viders:https://www.[employer]/Documents/Xpert%20Xpress%20SARS%20CoV-2/Fact%20Sh eets/302-8024%98CVEO-UOF-1%20HEALTHCARE%20PROVIDERS%20FACT%20SHEET.pdfFact Sheet for Healthcare Patients:https://www.[employer]/Documents/Xpert%20Xpress%20SARS%20CoV-2/Fact%20Sheets/302-3801%20SARS-COV -2%20PATIENT%20FACT%20SHEET.pdfPerforming Laboratory:[facility], [place] [id number] 19:18:00 Test Item Value Reference Range Interpretation Comments PARTIAL THROMBOPLASTIN TIME 78.6 seconds 22.5-36.0 H (BEAKER) (test code = 760) SCREEN, [id number] 18:26:00 Test Item Value Reference Range Interpretation Comments TEST URINE (BEAKER) (test Negative code = 583) [id number] 16:53:00 Test Item Value Reference Range Interpretation Comments PARTIAL THROMBOPLASTIN TIME 121.8 seconds 22.5-36.0 H (BEAKER) (test code = 760) CARDIOLIPIN ANTIBODIES, IGG AND [id number] 11:16:00 Test Item Value Reference Range Interpretation Comments ANTICARDIOLIPIN IGG ANTIBODY (BEAKER) < GPL <20.0 (test code = 712) ANTICARDIOLIPIN IGM ANTIBODY (BEAKER) 0.7 MPL <20.0 (test code = 713) Anticardiolipin IgG Result Interpretation: <20.0 GPL Normal>/= 20.0 GPL PositiveAnticardiolipin IgM Result Interpretation: <20.0 MPL Normal>/= 20.0 MPL [id number] 11:14:00 Test Item Value Reference Range Interpretation Comments RPR SCREEN (BEAKER) (test code = Nonreactive Nonreactive 420) COMPLEMENT COMPONENT [id number] 10:32:00 Test Item Value Reference Range Interpretation Comments C4 COMPLEMENT (BEAKER) (test code = 29 mg/dL 15-57 394) [employer] ID - NTPCOMPLEMENT COMPONENT [id number] 10:32:00 Test Item Value Reference Range Interpretation Comments C3 COMPLEMENT (BEAKER) (test code = 160 mg/dL 82-193 393) [employer] ID - NTPPROTHROMBIN [id number] 08:23:00 Test Item Value Reference Range Interpretation Comments PROTIME (BEAKER) (test code = 16.7 seconds 11.9-14.2 H 759) INR (BEAKER) (test code = 370) 1.4 <=5.9 Effective 09/11/2018: PT Reference Range ChangeNew: 11.9-14.2 Previous: 11.7- 14.7RECOMMENDED COUMADIN/WARFARIN INR THERAPY RANGESSTANDARD DOSE: 2.0-3.0 Includes: PROPHYLAXIS for venous thrombosis, systemic embolization; TREATMENT for venous thrombosis and/or pulmonary embolus.HIGH RISK: Target INR is2.5-3.5 for patients wiht mechanical heart valves.6 hours after starting heparin infusion and as indicated per sliding [id number] 06:05:00 Test Item Value Reference Range Interpretation Comments PARTIAL THROMBOPLASTIN TIME 58.6 seconds 22.5-36.0 H (BEAKER) (test code = 760) 6 hours after starting heparin infusion and as indicated per sliding scale SODIUM, RANDOM [id number] 05:06:00 Test Item Value Reference Range Interpretation Comments SODIUM URINE (BEAKER) (test code = < meq/L 243) Reference Range: No NormalsOperator ID - PIAYA LURINALYSIS WITH MICROSCOPIC IF [id number] 04:27:00 Test Item Value Reference Range Interpretation Comments COLOR (BEAKER) (test code = 470) Yellow CLARITY (BEAKER) (test code = 469) Clear SPECIFIC GRAVITY UA (BEAKER) (test > 1.001-1.035 H code = 468) PH UA (BEAKER) (test code = 467) 6.5 5.0-8.0 PROTEIN UA (BEAKER) (test code = 100 mg/dL Negative A 464) GLUCOSE UA (BEAKER) (test code = Negative Negative 365) KETONES UA (BEAKER) (test code = 40 mg/dL Negative A 371) BILIRUBIN UA (BEAKER) (test code = Negative Negative 462) BLOOD UA (BEAKER) (test code = 461) Large Negative A NITRITE UA (BEAKER) (test code = Negative Negative 465) LEUKOCYTE ESTERASE UA (BEAKER) Negative Negative (test code = 466) UROBILINOGEN UA (BEAKER) (test code 0.2 mg/dL 0.2-1.0 = 463) SOURCE(BEAKER) (test code = 2795) Underground Roof Bolter ID - [auto]Underground Roof Bolter ID - techURINALYSIS [id number] 04:27:00 Test Item Value Reference Range Interpretation Comments RBC UA (BEAKER) (test code = 519) > /HPF WBC UA (BEAKER) (test code = 520) 3 /HPF SQUAMOUS EPITHELIAL (BEAKER) (test 2 /HPF code = 516) Underground Roof Bolter ID - isisCREATININE, RANDOM [id number] 04:27:00 Test Item Value Reference Range Interpretation Comments CREATININE URINE (BEAKER) (test 135.0 mg/dL code = 375) Reference Range: No NormalsOperator ID - REBECA LBASIC METABOLIC [id number] 03:18:00 Test Item Value Reference Range Interpretation Comments SODIUM (BEAKER) 139 meq/L 136-145 (test code = 381) POTASSIUM (BEAKER) 3.6 meq/L 3.5-5.1 (test code = 379) CHLORIDE (BEAKER) 107 meq/L 98-107 (test code = 382) CO2 (BEAKER) (test 23 meq/L 22-29 code = 355) BLOOD UREA NITROGEN 19 mg/dL 7-21 (BEAKER) (test code = 354) CREATININE (BEAKER) 1.23 mg/dL 0.57-1.25 (test code = 358) GLUCOSE RANDOM 133 mg/dL 70-105 H (BEAKER) (test code = 652) CALCIUM (BEAKER) 9.1 mg/dL 8.4-10.2 (test code = 697) EGFR (BEAKER) (test 57 mL/min/1.73 ESTIMA BREANNA GFR IS code = 1092) sq m NOT ACCURATE CREATININE CLEARANCE IN PREDICTING GLOMERULAR FILTRATION RATE . ESTIMATED GFR I S NOT APPLICABLE FOR DIALYSIS PATIEN TS. Underground Roof Bolter ID - REBECA [id number] 03:16:00 Test Item Value Reference Range Interpretation Comments PARTIAL THROMBOPLASTIN TIME 147.0 seconds 22.5-36.0 H (BEAKER) (test code = 760) Prior to initiating heparinCBC W/PLT COUNT & AUTO [id number] 03:12:00 Test Item Value Reference Range Interpretation Comments WHITE BLOOD CELL COUNT (BEAKER) 17.8 K/ L 3.5-10.5 H (test code = 775) RED BLOOD CELL COUNT (BEAKER) 4.95 M/ L 3.93-5.22 (test code = 761) HEMOGLOBIN (BEAKER) (test code = 11.5 GM/DL 11.2-15.7 410) HEMATOCRIT (BEAKER) (test code = 38.7 % 34.1-44.9 411) MEAN CORPUSCULAR VOLUME (BEAKER) 78.2 fL 79.4-94.8 L (test code = 753) MEAN CORPUSCULAR HEMOGLOBIN 23.2 pg 25.6-32.2 L (BEAKER) (test code = 751) MEAN CORPUSCULAR HEMOGLOBIN CONC 29.7 GM/DL 32.2-35.5 L (BEAKER) (test code = 752) RED CELL DISTRIBUTION WIDTH 20.7 % 11.7-14.4 H (BEAKER) (test code = 412) PLATELET COUNT (BEAKER) (test 150 K/CU MM 150-450 code = 756) MEAN PLATELET VOLUME (BEAKER) 10.1 fL 9.4-12.3 (test code = 754) NUCLEATED RED BLOOD CELLS 0 /100 WBC 0-0 (BEAKER) (test code = 413) NEUTROPHILS RELATIVE PERCENT 89 % (BEAKER) (test code = 429) LYMPHOCYTES RELATIVE PERCENT 7 % (BEAKER) (test code = 430) MONOCYTES RELATIVE PERCENT 3 % (BEAKER) (test code = 431) EOSINOPHILS RELATIVE PERCENT 0 % (BEAKER) (test code = 432) BASOPHILS RELATIVE PERCENT 0 % (BEAKER) (test code = 437) NEUTROPHILS ABSOLUTE COUNT 15.82 K/ L 1.56-6.13 H (BEAKER) (test code = 670) LYMPHOCYTES ABSOLUTE COUNT 1.27 K/ L 1.18-3.74 (BEAKER) (test code = 414) MONOCYTES ABSOLUTE COUNT (BEAKER) 0.58 K/ L 0.24-0.36 H (test code = 415) EOSINOPHILS ABSOLUTE COUNT 0.00 K/ L 0.04-0.36 L (BEAKER) (test code = 416) BASOPHILS ABSOLUTE COUNT (BEAKER) 0.02 K/ L 0.01-0.08 (test code = 417) IMMATURE GRANULOCYTES-RELATIVE 1 % 0-1 PERCENT (BEAKER) (test code = 2801) LACTIC ACID, [id number] 03:07:00 Test Item Value Reference Range Interpretation Comments LACTATE BLOOD VENOUS (2) (BEAKER) 1.66 mmol/L 0.50-2.20 (test code = 2872) Underground Roof Bolter GEETHA Aguayo
[2019-09-14 21:12] VITALS: BP 143/78; TEMP 97.4; O2SAT 100
--- NOTE | 2019-09-15 19:20 | EDPHYS ---
Physician Documentation [facility] Name: Jesus Machado Age: 44 yrs Sex: Female : 1975 Arrival Date: 09/14/2019 Time: 17:52 Bed 15 Private MD: ED Physician Gordon Walters HPI: 09/13 20:00 This 44 yrs old Black Female presents to ER via Ambulatory with complaints of Mouth cp Problem, Sore Throat, Ear Pain. 20:00 The patient presents with ulceration. The problem is located in the left side of tongue cp and left upper buccal mucosa. 20:00 Onset: The symptoms/episode began/occurred over 1 week ago. cp 20:00 Duration: The symptoms are continuous, and are steadily getting worse. Associated signs cp and symptoms: Pertinent positives: pain, Pertinent negatives: anorexia, fever, inability to eat. The patient has been recently seen by a physician: the patient's primary care provider, with similar presenting complaints, currently taking prescribed Valtrex. 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 - Social history:: Smoking status: Patient denies any tobacco usage or history of. ROS: 20:05 ENT: Positive for ear pain, sores in mouth, Negative for drainage from ear(s), cp difficulty swallowing, difficulty handling secretions, hoarseness. 20:05 Constitutional: Negative for fever. cp 20:05 Respiratory: Negative for cough, shortness of breath, wheezing. 20:05 Abdomen/GI: Negative for abdominal pain. 20:05 Skin: Negative for rash. 20:05 Neuro: Negative for headache. 20:05 All other systems are negative. Exam: 20:10 Constitutional: The patient appears in no acute distress, alert, awake, non-toxic, well cp developed, well nourished. 20:10 Head/Face: Normocephalic, atraumatic. cp 20:10 ENT: External ear(s): are unremarkable, Ear canal(s): are normal, clear, TM's: are normal, no evidence of bulging, no dullness, Nose: is normal, Mouth: Lips: moist, Oral mucosa: moist, noted to have obvious stomatitis, on the left buccal mucosa and left lateral tongue, Posterior pharynx: Airway: no evidence of obstruction, patent, Tonsils: are normal in appearance, swelling, is not appreciated, erythema, that is mild, exudate, is not appreciated. 20:10 Neck: Lymph nodes: lymphadenopathy is appreciated, anterior cervical nodes. 20:10 Chest/axilla: Inspection: normal. 20:10 Cardiovascular: Rate: normal. 20:10 Respiratory: the patient does not display signs of respiratory distress, Respirations: normal. Vital Signs: 18:14 BP 143 / 78; Pulse 81; Resp 17 S; Temp 97.4(TE); Pulse Ox 100% on R/A; Weight 72.57 kg ca1 (R); Height 5 ft. 4 in. (162.56 cm) (R); Pain 9/10; 20:01 BP 138 / 47; Pulse 72; Resp 14; Temp 97.8; Pulse Ox 100% on R/A; Pain 4/10; ls4 18:14 Body Mass Index 27.46 (72.57 kg, 162.56 cm) ca1 MDM: 19:42 Patient medically screened. cp 20:27 Data reviewed: vital signs, nurses notes, lab test result(s), and as a result, I will cp discharge patient. 20:27 Differential diagnosis: dental caries, dental abscess, gingivostomatitis, strep throat. cp Counseling: I had a detailed discussion with the patient and/or guardian regarding: the historical points, exam findings, and any diagnostic results supporting the discharge/admit diagnosis, lab results, the need for outpatient follow up, a family practitioner, to return to the emergency department if symptoms worsen or persist or if there are any questions or concerns that arise at home. 09/13 18:22 Order name: Strep ca1 09/13 19:39 Order name: Throat Culture EDMS Administered Medications: No medications were administered Disposition: 21:10 Chart complete. cp Disposition: 09/14/19 20:28 Discharged to Home. Impression: Recurrent oral aphthae. - Condition is Stable. - Discharge Instructions: Stomatitis. - Prescriptions for Lidocaine Viscous - take 5 milliliter by ORAL route every 4-6 hours As needed mix with 5 mL of Maalox and 5 mL of liquid Benadryl. Swish/Gargle and Swallow; 1 bottle. - Medication Reconciliation Form, Thank You Letter, Antibiotic Education, Prescription Opioid Use form. - Follow up: Private Physician; When: 1 - 2 days; Reason: Recheck today's complaints. - Problem is an ongoing problem. - Symptoms are unchanged. Addendum: 09/18/2019 19:02 Co-signature as Attending Physician, Gordon abdi Signatures: Dispatcher [employer] EDOH Gordon Walters MD MD pkl Page, Corey, PA PA cp Roque, Raymond RN RN rr5 Maria Teresa Shah RN RN ca1 Corrections: (The following items were deleted from the chart) 09/13 21:06 20:28 09/14/2019 20:28 Discharged to Home. Impression: Recurrent oral aphthae. rr5 Condition is Stable. Forms are Medication Reconciliation Form, Thank You Letter, Antibiotic Education, Prescription Opioid Use. Follow up: Private Physician; When: 1 - 2 days; Reason: Recheck today's complaints. Problem is an ongoing problem. Symptoms are unchanged. cp
--- NOTE | 2019-09-15 19:20 | ER ---
Nurse's Notes [facility] Name: Jesus Machado Age: 44 yrs Sex: Female : 1975 Arrival Date: 09/14/2019 Time: 17:52 Bed 15 Private MD: Diagnosis: Recurrent oral aphthae Presentation: 09/13 18:14 Chief complaint: Patient states: Mouth sores since over a week ago. Reports sore ca1 throat. Reports pain in mouth. Pt was prescribed Valtrex with no relief and seemed to have been worse. Reports pain on L ear. Denies fever. Coronavirus screen: Proceed with normal triage. Patient denies a cough. Patient denies shortness of breath or difficulty breathing. Patient denies measured and/or subjective temperature greater than 100.4F prior to today's visit. Patient denies travel on a cruise ship or to a country the [facility] currently lists as an affected area. Patient denies contact with known and/or suspected case of COVID-19. Ebola Screen: Patient negative for fever greater than or equal to 101.5 degrees Fahrenheit, and additional compatible Ebola Virus Disease symptoms Patient denies exposure to infectious person. Patient denies travel to an Ebola-affected area in the 21 days before illness onset. No symptoms or risks identified at this time. Initial Sepsis Screen: Does the patient meet any 2 criteria? No. Patient's initial sepsis screen is negative. Does the patient have a suspected source of infection? No. Patient's initial sepsis screen is negative. Risk Assessment: Do you want to hurt yourself or someone else? Patient reports no desire to harm self or others. Onset of symptoms was September 14, 2019. 18:14 Method Of Arrival: Ambulatory ca1 18:14 Acuity: FERMIN 4 ls4 Triage Assessment: 19:20 General: Appears uncomfortable, Behavior is calm, cooperative. 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 - Social history:: Smoking status: Patient denies any tobacco usage or history of. Screenin:20 Abuse screen: Denies threats or abuse. Denies injuries from another. ls4 19:20 Nutritional screening: No deficits noted. Tuberculosis screening: No symptoms or risk ls4 factors identified. Fall Risk None identified. Assessment: 18:20 Respiratory: Airway is patent Respiratory effort is even, unlabored, Breath sounds are ls4 clear bilaterally. 18:20 Pain: Denies pain. EENT: Throat is reddened. ls4 18:20 Derm: Skin is intact, is healthy with good turgor, Skin is dry, Skin is normal. ls4 Vital Signs: 18:14 BP 143 / 78; Pulse 81; Resp 17 S; Temp 97.4(TE); Pulse Ox 100% on R/A; Weight 72.57 kg ca1 (R); Height 5 ft. 4 in. (162.56 cm) (R); Pain 9/10; 20:01 BP 138 / 47; Pulse 72; Resp 14; Temp 97.8; Pulse Ox 100% on R/A; Pain 4/10; ls4 18:14 Body Mass Index 27.46 (72.57 kg, 162.56 cm) ca1 ED Course: 17:52 Patient arrived in ED. as 18:18 Strep swab sent to lab. ca1 18:20 Triage completed. ca1 18:20 Preeti Darden, RN is Primary Nurse. ls4 18:20 No apparent distress. ls4 18:21 Arm band placed on right wrist. ca1 19:20 Patient has correct armband on for positive identification. Bed in low position. Call ls4 light in reach. Side rails up X 1. Pulse ox on. NIBP on. Verbal reassurance given. 19:20 Strep swab sent to lab. ca1 19:20 No provider procedures requiring assistance completed. Patient did not have IV access ls4 during this emergency room visit. 19:28 Morteza Martínez PA is PHCP. cp 19:28 Gordon Walters MD is Attending Physician. cp Administered Medications: No medications were administered Outcome: 20:28 Discharge ordered by . cp 21:06 Patient left the ED. rr5 21:06 Discharged to home ambulatory. ls4 21:06 Condition: good 21:06 Discharge instructions given to patient, family, Instructed on discharge instructions, ls4 medication usage, Demonstrated understanding of instructions, follow-up care, medications. Signatures: Erlinda Soriano Corey, PA PA cp Stewart, Lisa, RN RN ls4 Oneil Kang, RN RN rr5 Maria Teresa Shah RN RN ca1 Corrections: (The following items were deleted from the chart) 09/14 01:13 09/13 18:14 Acuity: FERMIN 3 ca1 ls4 09/14 01:15 09/13 19:41 Preeti Darden, ROGELIO is Primary Nurse. ls4 ls4 09/14 01:17 09/13 18:20 EENT: No signs and/or symptoms were reported regarding the EENT system. ls4 Throat is clear ls4
== END 2019-09-14 21:06 | disposition home or self-care (01) ==
LOC: ER 17:50
DX: K12.0 Recurrent oral aphthae (principal); I10 Essential (primary) hypertension; Z79.01 Long term (current) use of anticoagulants; Z86.718 Personal history of other venous thrombosis and embolism
CPT/HCPCS: 87070; 87081; 99283